=== PATIENT | female | born 1985 | race Caucasian/White ===

== ENCOUNTER 2018-09-30 11:13 | Outpatient (CLI) | payer OTHER, SELFPAY ==
[2018-09-30 11:47] LABS: Abs Immature Grans 0.02 k/cumm (0.0-0.09); Absolute Basophil Count 0.02 k/cumm (0.0-0.2); Absolute Lymphocyte Count 2.33 k/cumm (1.2-3.4); Absolute Monocyte Count 0.82 k/cumm (0.11-0.7); Absolute Neutrophil Count 4.93 k/cumm (1.2-6.7); Basophils % 0.2; HCT 37.2 % (36.0-46.0); HGB 12.4 g/dL (12.0-15.5); Immature Grans % 0.2; Lymphocytes % 28.7; Mean Corp. HGB Concentration 33.3 g/dL (32.0-36.0); Mean Corpuscular Hemoglobin 26.6 pg (27.0-33.0); Mean Corpuscular Volume 79.8 fL (80-95); Mean Platelet Volume 9.7 fL (8.0-11.0); Monocytes % 10.1; Neutrophils % 60.8; Platelet Count 293 x1000/uL (130-400); RBC 4.66 m/cumm (4.00-5.20); RBC Distribution Width 13.3 % (11.7-14.6); White Blood Cell Count 8.12 k/cumm (4.4-10.8)
[2018-10-01 10:24] LABS: Hepatitis C Ab w Rflx HCV PCR Negative (NEGAT)
[2018-10-01 10:27] LABS: Hepatitis B Surface Ag Negative (NEGAT)
[2018-10-01 10:43] LABS: HIV-1/2 Ag & Ab Screen Negative (NEGAT)
[2018-10-01 10:57] LABS: Rubella IgG Ab (UVM) Positive; Syphilis Serology (RPR) Negative (Negative); Varicella IgG Antibody Positive
== END 2018-09-30 11:33 ==
PROVIDERS: Visit Provider Advanced Practice Midwife
DX: Z34.91 Encounter for supervision of normal pregnancy, unspecified, first trimester (principal); Z11.59 Encounter for screening for other viral diseases; Z11.4 Encounter for screening for human immunodeficiency virus [HIV]; Z01.84 Encounter for antibody response examination
CPT/HCPCS: 36415; 80055; 86787; 86803; 86850; 86900; 86901; 87340; 87389; 86592; 86762

== ENCOUNTER 2018-09-30 13:02 | Outpatient (REF) | payer OTHER, SELFPAY ==
[2018-09-30 14:49] LABS: *AMPHETAMINES SCREEN URINE Negative (Negative); *BARBITURATES SCREEN URINE Negative (Negative); *BENZODIAZEPINES SCREEN URINE Negative (Negative); Cannabinoids THC Negative (Negative); Cocaine Screen,Urine Negative (Negative); METHADONE URINE SCREEN Negative (Negative); OPIATES URINE SCREEN Negative (Negative); Tricyclic Antidepressants Negative (Negative)
[2018-10-01 13:54] LABS: Chlamydia Result Negative; GC Result Negative; Specimen Description CERVIX
[2018-10-05 10:00] LABS: Buprenorphine Negative; Norbuprenorphine Negative
== END 2018-09-30 13:22 ==
LOC: LBN 13:02
PROVIDERS: Visit Provider Advanced Practice Midwife
DX: Z34.90 Encounter for supervision of normal pregnancy, unspecified, unspecified trimester (principal); N76.3 Subacute and chronic vulvitis
CPT/HCPCS: 80307; 87491; 87591; 87086; 87480; 87510; 87660

== ENCOUNTER 2018-10-30 11:21 | Outpatient (CLI) | payer OTHER, SELFPAY ==
[2018-10-30 11:50] LABS: Kit/Specimen SENT
[2018-11-02 17:17] LABS: AFP 45.6 ng/mL; Calculated age at EDD 34 years; Cigarette smoking status non-smoker; GA used in risk estimate Dates estimate; IVF Pregnancy No; Initial or repeat testing Initial testing; Insulin dependent diabetes No; Maternal Weight 147 lbs; Number of Fetuses 1; Physician Phone Number 802-748-7300; Prev Pregnancy w/NTD No; RECOMMENDED FOLLOW UP None.; Results Summary Normal risk
== END 2018-10-30 11:41 ==
PROVIDERS: Visit Provider Advanced Practice Midwife
DX: Z34.91 Encounter for supervision of normal pregnancy, unspecified, first trimester (principal); Z36.89 Encounter for other specified antenatal screening
CPT/HCPCS: 82105

== ENCOUNTER 2018-11-19 00:35 | Outpatient (CLI) | payer OTHER, SELFPAY ==
--- NOTE | 2018-11-19 15:18 | DI.US_ITS ---
SYMPTOMS/DIAGNOSIS: ANATOMICAL SURVEY, Z34.90 OB ULTRASOUND: Predicted Gestational Age: Indication/History: 19+-6 Wks Range: 18+6 to 20+6 Prior US done on: Determined by: First US LMP History EDC by prior US: 04/09/19 For multiple gestations: Baby PLACENTA: Grade: 0-I Location: Anterior Posterior PRESENTATION: RT LT LOW LYING PREVIA Cephalic Trans (Head RT LT ) Varied X Breech BIOMETRY: Anatomy Identified: BPD: 46 mm 20 wks 4 chamber Heart X Heart Rate 144 BPM HC: 179 mm 20+3 wks LVOT X Post Fossa X AC: 146 mm 19+6 wks RVOT X Ventricles X FL: 33 mm 20+2 wks Stomach X Nose X Bladder X Lips X Cisterna Magna: 3.1 mm CI: 80 Kidneys X Palate X Cerebellum: 2.1 cm 3 vessel cord X Spine EFW: 332 grms 60% Cord Insertion X NS= not seen Composite Age (US) 20+1 wks Many abnormalities cannot be diagnosed. A normal exam does not exclude congenital abnormality. EDC by US: 04/07/19 Amniotic Fluid Index: Normal COMMENTS: 0 POUNDS 12 OUNCES RUQ: LUQ: RLQ: LLQ: Total: cm Biophysical Profile: Score 0/2 SHAHRAM (>2cm) Respirations (>30 sec) Body flexion/extension Extremity flexion/extension TOTAL SCORE The study demonstrates the fetus in varying positions. The measurements suggest a gestational age of 20 weeks and 1 day. The amniotic fluid index is normal. No anomaly was observed. The heart rate is 144 beats per minute. The placenta is posterior and is grade 0-1. Please see the obstetrical ultrasound report form for the complete results of this examination.
== END 2018-11-19 00:55 ==
PROVIDERS: Visit Provider Advanced Practice Midwife
DX: Z34.90 Encounter for supervision of normal pregnancy, unspecified, unspecified trimester (principal)
CPT/HCPCS: 76805

== ENCOUNTER 2019-01-12 09:13 | Outpatient (CLI) | payer OTHER, SELFPAY ==
[2019-01-12 09:28] LABS: HCT 32.4 % (36.0-46.0); HGB 10.8 g/dL (12.0-15.5); Mean Corp. HGB Concentration 33.3 g/dL (32.0-36.0); Mean Corpuscular Hemoglobin 26.9 pg (27.0-33.0); Mean Corpuscular Volume 80.6 fL (80-95); Mean Platelet Volume 9.1 fL (8.0-11.0); Platelet Count 278 x1000/uL (130-400); RBC 4.02 m/cumm (4.00-5.20); RBC Distribution Width 13.1 % (11.7-14.6); White Blood Cell Count 8.29 k/cumm (4.4-10.8)
[2019-01-12 09:45] LABS: Glucose,1 Hr (Glucola) 119 mg/dL (80-140)
== END 2019-01-12 09:33 ==
PROVIDERS: Visit Provider Advanced Practice Midwife
DX: Z34.93 Encounter for supervision of normal pregnancy, unspecified, third trimester (principal)
CPT/HCPCS: 36415; 82950; 85027

== ENCOUNTER 2019-03-10 15:40 | Outpatient (REF) | payer OTHER, SELFPAY ==
[2019-03-10 16:21] LABS: *AMPHETAMINES SCREEN URINE Negative (Negative); *BARBITURATES SCREEN URINE Negative (Negative); *BENZODIAZEPINES SCREEN URINE Negative (Negative); Cannabinoids THC Negative (Negative); Cocaine Screen,Urine Negative (Negative); METHADONE URINE SCREEN Negative (Negative); OPIATES URINE SCREEN Negative (Negative)
[2019-03-10 16:32] LABS: Tricyclic Antidepressants Negative (Negative)
[2019-03-15 14:23] LABS: Buprenorphine Negative; Norbuprenorphine Negative
== END 2019-03-10 16:00 ==
LOC: LBN 15:40
PROVIDERS: Visit Provider Advanced Practice Midwife
DX: Z34.93 Encounter for supervision of normal pregnancy, unspecified, third trimester (principal); Z36.85 Encounter for antenatal screening for Streptococcus B
CPT/HCPCS: 80307; 87081

== ENCOUNTER 2019-04-12 09:47 | Inpatient (IN) | payer OTHER, SELFPAY ==
[2019-04-12 12:23] LABS: HCT 35.6 % (36.0-46.0); HGB 11.7 g/dL (12.0-15.5); Mean Corp. HGB Concentration 32.9 g/dL (32.0-36.0); Mean Corpuscular Hemoglobin 25.9 pg (27.0-33.0); Mean Corpuscular Volume 78.9 fL (80-95); Mean Platelet Volume 10.5 fL (8.0-11.0); Platelet Count 291 x1000/uL (130-400); RBC 4.51 m/cumm (4.00-5.20); RBC Distribution Width 14.4 % (11.7-14.6); White Blood Cell Count 13.08 k/cumm (4.4-10.8)
[2019-04-12] MEDS: fentaNYL 100 MCG/2 ML VIAL EP (13:20)
[2019-04-12] MEDS: Bupivacaine 0.25% Pres-Free 30 ML VIAL (13:22)
[2019-04-12] MEDS: FentaNYL/ROPIvacaine 2 mcg/ml and 0.1% 200 ML CADD Cassette EP (14:00)
--- NOTE | 2019-04-12 18:30 | PLAC_PTH ---
PATIENT: Mariluz Dimas LOC: OBS U#:[id number] AGE/SX: 33/F ROOM: OBS.304 RE04/12/[address]: Bridgett Carlin CNM : 1985 BED: A DIS: 04/14/2019 SPEC #: [id number] RECD: 04/12/19 22:02 STATUS: KAREEN REHenok #: [id number] PEDRO: 04/12/19 18:[address]: Bridgett Carlin DEPT: Surgical Specimen RECD BY: Isidro Alvarado ENTERED: 04/13/19 12:07 SP TYPE: PLAC OTHR DR: Sukhi Damian, RN Tissues: 1 - PLACENTA (3RD TRIMESTER) Procedures: SPECIAL STAIN 2 GROSS AND MICRO LEVEL 5 Comments: [id number]
[2019-04-12] MEDS: lamoTRIgine 100 MG TAB 150 MG PO (21:03)
[2019-04-12] MEDS: Acetaminophen 325 MG TAB 650 MG PO (23:46)
[2019-04-12] MEDS: Ibuprofen 600 MG TAB PO (23:46)
[2019-04-13 06:54] LABS: HGB 9.3 g/dL (12.0-15.5); Mean Corp. HGB Concentration 32.1 g/dL (32.0-36.0); Mean Corpuscular Hemoglobin 25.7 pg (27.0-33.0); Mean Corpuscular Volume 80.1 fL (80-95); Mean Platelet Volume 9.6 fL (8.0-11.0); Platelet Count 241 x1000/uL (130-400); RBC 3.62 m/cumm (4.00-5.20); RBC Distribution Width 14.3 % (11.7-14.6)
[2019-04-13] MEDS: lamoTRIgine 100 MG TAB 150 MG PO ×2 (12:38→23:13)
[2019-04-13] MEDS: Acetaminophen 325 MG TAB 650 MG PO ×2 (12:39→23:13)
[2019-04-13] MEDS: Ibuprofen 600 MG TAB PO ×2 (12:40→23:12)
[2019-04-14] MEDS: Ibuprofen 600 MG TAB PO (07:56)
[2019-04-14] MEDS: Acetaminophen 325 MG TAB 650 MG PO (07:56)
[2019-04-14] MEDS: lamoTRIgine 100 MG TAB 150 MG PO (09:59)
== END 2019-04-14 13:30 | disposition home or self-care (01) | DRG 806 ==
PROVIDERS: Admitting Provider Advanced Practice Midwife; Visit Provider Advanced Practice Midwife
DX: O42.02 Full-term premature rupture of membranes, onset of labor within 24 hours of rupture (principal); O99.354 Diseases of the nervous system complicating childbirth; Z37.0 Single live birth; O48.0 Post-term pregnancy; Z3A.40 40 weeks gestation of pregnancy; O70.0 First degree perineal laceration during delivery; O77.0 Labor and delivery complicated by meconium in amniotic fluid; O69.89X0 Labor and delivery complicated by other cord complications, not applicable or unspecified; O99.824 Streptococcus B carrier state complicating childbirth; O99.344 Other mental disorders complicating childbirth; O92.29 Other disorders of breast associated with pregnancy and the puerperium; F41.9 Anxiety disorder, unspecified; G40.909 Epilepsy, unspecified, not intractable, without status epilepticus; Z88.0 Allergy status to penicillin
CPT/HCPCS: 36415; 85027; 86850; 86900; 86901; 88307; 88313; J3010; J3490

== ENCOUNTER 2019-05-26 14:07 | Outpatient (REF) | payer OTHER, SELFPAY ==
[2019-05-28 14:48] LABS: Chlamydia Result Negative (Negative); GC Result Negative (Negative)
== END 2019-05-26 14:27 ==
LOC: LBN 14:07
PROVIDERS: Visit Provider Advanced Practice Midwife
DX: Z11.3 Encounter for screening for infections with a predominantly sexual mode of transmission (principal)
CPT/HCPCS: 87491; 87591

== ENCOUNTER 2022-05-31 15:10 | Outpatient (REF) | payer MEDICAID, SELFPAY ==
--- NOTE | 2022-05-31 13:00 | PAPFT_PTH ---
PATIENT: Mariluz Dimas LOC: PHILL U#:[id number] AGE/SX: 36/F ROOM: RE05/31/[address]: Bridgett Carlin CNM : 1985 BED: DIS: 05/31/2022 SPEC #: [id number] RECD: 05/31/22 18:23 STATUS: KAREEN REQ #: [id number] PEDRO: 05/31/22 13:[address]: Bridgett Carlin [facility] Cytology RECD BY: Naty Savage Tissues: 1 - CX/ENDOCX FOR PAP SMEARS Procedures: PAP THIN PREP/UVM Screening HPV DNA PROBE Comments: [id number] (HPV 16 & 18/45)
== END 2022-05-31 15:11 | disposition home or self-care (01) ==
LOC: LBN 15:10
PROVIDERS: Visit Provider Advanced Practice Midwife
DX: Z12.4 Encounter for screening for malignant neoplasm of cervix (principal); Z11.51 Encounter for screening for human papillomavirus (HPV); R87.612 Low grade squamous intraepithelial lesion on cytologic smear of cervix (LGSIL); R87.810 Cervical high risk human papillomavirus (HPV) DNA test positive
CPT/HCPCS: 88142; 87624

== ENCOUNTER 2022-07-12 10:45 | Outpatient (REF) | payer MEDICAID, SELFPAY ==
--- NOTE | 2022-07-12 09:50 | ENDO_PTH ---
PATIENT: Mariluz Dimas LOC: PHILL U#:[id number] AGE/SX: 36/F ROOM: RE07/12/[address]: Mary Santos DO : 1985 BED: DIS: 07/12/2022 SPEC #: [id number] RECD: 07/12/22 12:12 STATUS: KAREEN REQ #: [id number] PEDRO: 07/12/22 09:[address]: Mary Santos DEPT: Surgical Specimen RECD BY: Naty Savage Tissues: 1 - ENDOCERVICAL BX/CURRETTE 2 - CERVICAL BIOPSY Procedures: GROSS AND MICRO LEVEL 4 IMMUNOPEROXIDASE STAIN P16 IPEX Comments: [id number]
== END 2022-07-12 10:46 | disposition home or self-care (01) ==
LOC: LBN 10:45
PROVIDERS: Visit Provider Obstetrics & Gynecology
DX: N87.1 Moderate cervical dysplasia (principal); R87.612 Low grade squamous intraepithelial lesion on cytologic smear of cervix (LGSIL); R87.810 Cervical high risk human papillomavirus (HPV) DNA test positive
CPT/HCPCS: 88305; 88342; 88361

== ENCOUNTER 2022-08-29 14:55 | Outpatient (REF) | payer MEDICAID, SELFPAY ==
--- NOTE | 2022-08-29 14:15 | CER_PTH ---
PATIENT: Mariluz Dimas LOC: Josefina U#:[id number] AGE/SX: 37/F ROOM: RE08/29/[address]: Mary Santos DO : 1985 BED: DIS: 08/29/2022 SPEC #: [id number] RECD: 08/29/22 16:10 STATUS: KAREEN RE #: [id number] PEDRO: 08/29/22 14:[address]: Mary Santos DEPT: Surgical Specimen RECD BY: Ludy Fritz Tissues: 1 - CERVICAL BIOPSY 2 - CERVICAL BIOPSY Procedures: IMMUNOPEROXIDASE STAIN GROSS AND MICRO LEVEL 5 Comments: [id number]
== END 2022-08-29 14:56 | disposition home or self-care (01) ==
LOC: LBN 14:55
PROVIDERS: Visit Provider Obstetrics & Gynecology
DX: N87.1 Moderate cervical dysplasia (principal); N88.8 Other specified noninflammatory disorders of cervix uteri
CPT/HCPCS: 88305; 88307; 88361

== ENCOUNTER 2023-03-03 11:50 | Outpatient (REF) | payer SELFPAY ==
--- NOTE | 2023-03-03 10:20 | PAPFT_PTH ---
PATIENT: Mariluz Dimas LOC: PHILL U#:[id number] AGE/SX: 37/F ROOM: RE03/03/[address]: Mary Santos DO : 1985 BED: DIS: 03/03/2023 SPEC #: [id number] RECD: 03/03/23 13:12 STATUS: KAREEN REQ #: [id number] PEDRO: 03/03/23 10:[address]: Mary Santos DEPT: [facility] Cytology RECD BY: Naty Savage Tissues: 1 - CX/ENDOCX FOR PAP SMEARS Procedures: PAP THIN PREP/UVM Screening HPV DNA PROBE Comments: [id number]
== END 2023-03-03 11:51 | disposition home or self-care (01) ==
LOC: LBN 11:50
PROVIDERS: PCP Obstetrics & Gynecology; Visit Provider Obstetrics & Gynecology
DX: Z12.4 Encounter for screening for malignant neoplasm of cervix (principal); Z11.51 Encounter for screening for human papillomavirus (HPV)
CPT/HCPCS: 88142; 87624

== ENCOUNTER 2024-05-18 14:18 | Outpatient (REF) | payer MEDICAID, SELFPAY | END 2024-05-18 14:19 | disposition home or self-care (01) | LOC: LBN 14:18 | PROVIDERS: PCP Obstetrics & Gynecology; Visit Provider Obstetrics & Gynecology | DX: N89.8 Other specified noninflammatory disorders of vagina (principal) | CPT/HCPCS: 87480; 87510; 87660 ==

== ENCOUNTER 2024-05-27 00:22 | Outpatient (CLI) | payer MEDICAID, SELFPAY ==
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
--- OUTSIDE RECORDS SUMMARY | 2024-05-27 00:36 | XMS_ITS | Encounter Summary ---
Author Organization Formerly [facility] Address [facility] [place] [address] Care Team Providers Care Java Tech Name Role Phone Erinn Walters APRN Primary Care Provider [phone] Reason for Referral * Consultation (Routine) - Specialty Diagnoses / Procedures Referred By Melinda gastelum Referred To Contact Dermatology Diagnoses Disorder of skin or subcutaneous tissue Lentigo Erinn Walters APRN [address] [place] [id number] [facility] [address] [place] [id number] Referral ID Status Reason Start Date Expiration Date V isits Requested Visits Authorized [id number] Consult, Test & Treat 04/09/2017 04/09/2018 1 1 Reason for Visit * Reason Comments Annual Exam Encounter Details Date Type Department Care Team ([facility] st Contact Info) Description 04/09/2017 10:50 AM EST Office Visit Primary Care at [address] [phone] Erinn Walters APRN [address] [place] [phone] Cervical cancer screening; Convulsions, unspecified convulsion type; Preventative health care; Disorder of skin or subcutaneous tissue; Lentigo Social History Tobacco Use Types Packs/Day Years Used Date Smoking Tobacco: Former Cigarettes Q uit: 04/21/2003 Smokeless Tobacco: Never Sex and Gender Information Value Date Recorded Sex Assigned at Not on file Gender Identity Not on file Sexual Orientation Not on file documented as of this encounter Last Filed Vital Signs Vital Sign Reading Time Taken Comments Blood Pressure 110/68 04/09/2017 10:53 AM EST Pulse 71 04/09/2017 10:53 AM EST Temperature 36.4 ??C (97.6 ??F) 04/09/2017 10:[address] Respiratory Rate - - Oxygen Saturation 100% 04/09/2017 10:53 AM EST Inhaled Oxygen Concentration - - Weight 63 kg (138 lb 12.8 oz) 04/09/2017 10:53 A M EST Height 167.6 cm (5' 6) 04/09/2017 10:53 AM EST Body Mass Index 22.4 04/09/2017 10:53 AM EST documented in this encounter Patient Instructions * Patient Instructions* Erinn Walters APRN - 04/09/2017 10:50 AM EST Good to see you! I will let you know the results of your labs thru my-. Happy Holidays and best wishes for your move to [place]!! documented in this encounter Progress Notes * Erinn Walters APRN - 04/09/2017 10:50 AM EST Subjective: AV Patient ID: Mariluz Dimas is a 31 y.o. female. HPI Stressful Summer. Several deaths of friends; OD, sudden heart issue and family friend. It has been good lately. Thinking of moving to [place] with her [employer]. Would be [facility] in the Spring. Cost of living a bit higher. Only 2 1/2 hours away still close to friends etc. Currently lives in her own apt. Not dating anyone. 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 Due for labs. No seizures in over a decade. Cont on Lamictal. Review of Systems Constitutional: Negative. HENT: Negative. Eyes: Negative. Respiratory: Negative. Cardiovascular: Negative. Gastrointestinal: Negative. Endocrine: Negative. Genitourinary: Negative. Musculoskeletal: Negative. Skin: Multiple atypical moles Needs mole check Neurological: Negative. Psychiatric/Behavioral: Negative. Objective: Physical Exam Constitutional: She appears well-developed and well-nourished. No distress. HENT: Head: Normocephalic. Right Ear: External ear normal. Left Ear: External ear normal. Nose: Nose normal. Mouth/Throat: Oropharynx is clear and moist. No oropharyngeal exudate. Eyes: Conjunctivae and EOM are normal. Pupils are equal, round, and reactive to light. No scleral icterus. Neck: Neck supple. Cardiovascular: Normal rate and regular rhythm. Pulmonary/Chest: Breath sounds normal. Breast exam Abdominal: Soft. Bowel sounds are normal. Genitourinary: Vagina normal and uterus normal. Musculoskeletal: Normal range of motion. She exhibits no edema. Neurological: She has normal reflexes. Skin: Skin is warm and dry. Psychiatric: She has a normal mood and affect. Assessment and Plan: .Preventative health care Nl exam PAP and labs Ref for derm ck Convulsions Sees neuro No seizures in over 10 yrs Disorder of skin or subcutaneous tissue Refer for mole ck documented in this encounter Miscellaneous Notes * Assessment & Plan Note - Erinn Walters APRN - 04/09/2017 1:42 PM EST Associated Problem(s): Disorder of skin or subcutaneous tissue Refer for mole ck * Assessment & Plan Note - Erinn Walters APRN - 04/09/2017 1:42 PM EST Associated Problem(s): Convulsions Sees neuro No seizures in over 10 yrs * Assessment & Plan Note - Erinn Walters APRN - 04/09/2017 1:42 PM EST Associated Problem(s): Preventative health care Nl exam PAP and labs Ref for derm ck documented in this encounter Plan of Treatment Scheduled Referrals Name Type Priority Associated Diagnoses Orde r Schedule Referral to Dermatology Outpatient Referral Routine Disorder of skin or subcutaneous tissue Lentigo Ordered: 04/09/2017 documented as of this encounter Procedures Procedure Name Priority Date/Time Associated Diagnosis Comments HPV Routine 04/09/2017 11:43 AM EST POUNCER CYTOLOGY INTERPRETATION Routine 04/09/2017 11:43 AM EST POUNCER CYTOLOGY FINAL REPORT Routine 04/09/2017 11:43 AM EST CYTOPATHOLOGY GYNECOLOGICAL Routine 04/09/2017 11:43 AM EST Cervical cancer screening documented in this encounter Results * Lipid Panel (04/09/2017 12:00 PM EST) Cholesterol, Total 167 <=239 mg/dL [facility] Triglyceride 132 <=199 mg/dL [facility] HDL Cholesterol 72 >=40 mg/dL [facility] LDL Cholesterol 69 <=190 mg/dL [facility] Cholesterol/HDL Ratio 2.3 ratio [facility] Lipid Interpretation See Note [facility] Comment: Lipid management should be guided by a patient? s ASCVD risk, goals and preferences. ACC/AHA Guidelines recommend high intensity statin if clinical ASCVD or LDL greater than or equal to 190 mg/dL. http://SeatNinjaurNovusEdge.com/XNI-WST-Jvdkmcyhz Adults aged 40-75 with LDL 70-189 mg/dL should have their 10 year ASCVD risk estimated with the ACC/AHA ASCVD risk printing estimator http://tools.acc.org/WIOSJ-Suqk-Wmcfhwkdn/ Statin should be discussed if risk greater than or equal to 7.5% in non-diabetics. With diabetes, moderate intensity statin is recommended if risk less than 7.5%, high intensity if risk greater than or equal to 7.5%. Annual lipid monitoring on statins is not necessary. Evaluate secondary causes of Triglycerides greater than 500 mg/dL or LDL greater than 190 mg/dL: See table 6 of ACC/AHA Guideline. Lifestyle modification is a critical component of ASCVD risk reduction. Blood specimen (specimen) 04/09/2017 12:00 PM EST 04/09/2017 7:35 PM EST Narrative Resulting Agency Comment Spec In Lab Erinn Voss Walters REGINA CHEMISTRY ORDERABLE S [facility] [place] [address] * (ABNORMAL) Comprehensive metabolic panel (non-fasting) (04/09/2017 12:00 PM EST) Glucose 81 65 - 199 mg/dL [facility] Comment:Diabetes: >=200 mg/d L plus symptoms Blood Urea Nitrogen 9 8 - 18 mg/dL [facility] Creatinine 0.90 0.70 - 1.20 mg/dL [facility] Sodium 143 135 - 145 mmol/L [facility] Potassium 4.1 3.5 - 5.0 mmol/L [facility] Comment: Please note: ??Patients with WBC >100,000 may have falsely elevated Potassium levels. ??For accurate Potassium quantification in these patients send serum separator tube (gold top) for subsequent determinations. ??Contact the Clinical Chemistry Laboratory if there are any questions. Chloride 103 98 - 107 mmol/L [facility] Carbon Dioxide 30 22 - 31 mmol/L [facility] Anion Gap 10 5 - 15 mmol/L [facility] Calcium 9.5 8.5 - 10.5 mg/dL [facility] Protein, Total 8.1(H) 6.1 - 8.0 gm/dL [facility] Albumin 4.7 3.2 - 5.2 gm/dL [facility] Aspartate Aminotransferase 15 0 - 30 unit/L [facility] Alanine Aminotransferase 10 0 - 30 unit/L [facility] Alkaline Phosphatase 50 40 - 104 unit/L [facility] Bilirubin, Total 0.2 0.2 - 1.3 mg/dL [facility] Est Glomerular Filtration Rate >60 >=60 [facility] Comment: The reported eGFR should be multiplied by 1.2 for patients. The MDRD is not an appropriate measure of renal function for patients with body mass extremes or in patients with acute kidney failure. http://ObjectLabs/DHnkdep http://ObjectLabs/DHnkf Blood specimen (specimen) 04/09/2017 12:00 PM EST 04/09/2017 7:35 PM EST Narrative Resulting Agency Comment Spec In Lab Erinn Walters APRN CHEMISTRY ORDERABLE S [facility] [place] [address] * Post Closing Specialist Cytology Final Report (04/09/2017 11:43 AM EST) Post Closing Specialist Cytology Final Report [id number] ? Location: [place] The signing pathologist has (i) examined the relevant preparation(s) for the specimen(s) and (ii) rendered or confirmed the diagnosis(es). . ? Post Closing Specialist Final DIAGNOSIS Epithelial Cell Abnormality Low Grade Squamous Intraepithelial Lesion (LSIL). (encompassing: Human Papilloma virus, mild dysplasia and cervical intraepithelial neoplasia (CIN1).) For consensus guidelines for the management of cervical cancer screening test results, please see: ?? http://www.asccp.o rg . Electronically signed by: ??Lena Ruff MD Verified: ??04/30/2017 ?Pathologist Performed at: ??-[facility] Dept. [facility], [place], [place] DISCUSSION Shift in oneil suggestive of bacterial vaginosis. HPV RESULTS HPV16 (Result) ?Negative HPV18 (Result) ?Negative HPVOHR (Result) ? Positive * HPV (Interpretation) ?See Below HPV (Interpretation) [...] Clinical Genomics and [employer] Technology (CGAT) at [facility]. ? - Fernie Morales, PhD, [facility], Director-CGAT STATEMENT OF ADEQUACY Specimen submitted is satisfactory. Endocervical component present. CLINICAL INFORMATION HPV Option: ?Concurrent HPV and Pap Preparation: ? Liquid based Pap Specimen Source: ? Cervical/Endocervi john/Vaginal LMP: ? 03/21/17 Hormones?: ? No Hysterectomy?: ? No ?: ? No ?: ? No I.U.D.?: ? No Pelvic Radiation: ?No Prior POUNCER Therapy?: ?No Hist Abnl Pap/Biopsy?: ?? Yes, history of previous abnormal Pap Hist of HPV Vaccine?: ?No . CLINICAL INFORMATION Hist of Smoking?: ?Yes Hist of LEONARD exposure?: ?? No ICD Diagnosis: ? Z12.4 Encounter for screening for malignant neoplasm of cervix Clinical Data, Significant Therapy and Clinical Impression ?? : ?_ This Pap Test has been evaluated with the assistance of the [employer] Semiconductor Equipment AssociatesPrep Pap Test Imaging System. Note: The Pap test is a screening test for cervical cancer with an inherent false-negative rate dependent upon several variables. For further information please contact the [facility]. Reference: Gen INMAN. Psychology Lecturer of Pap Smear Results. In: Kat BS, Jh HH, ed. The Pap Smear. [facility]: Allan, 2002: 71-77. [facility] 04/09/2017 11:4 3 AM EST Erinn Walters APRN PATHOLOGY/CYTOLOGY ORDERABLES Performing Organization Address City/[facility] [place] [address] * (ABNORMAL) POUNCER Cytology Interpretation (04/09/2017 11:43 AM EST) Post Closing Specialist Cytology Interpretation LSIL(A) [facility] Comment:Post Closing Specialist Cytology Final R eport Post Closing Specialist Cytology Comment Present [facility] Endocervical Component Present [facility] AP Specimen 04/09/2017 11:4 3 AM EST 04/30/2017 9:42 AM EST Erinn Walters APRN PATHOLOGY/CYTOLOGY ORDERABLES Performing Organization Address City/[facility] Co de Phone Number [facility] [place] [address] * (ABNORMAL) HPV (04/09/2017 11:43 AM EST) HPV16 NEGATIVE NEGATIVE [facility] HPV 18 NEGATIVE NEGATIVE [facility] HPV Other HR POSITIVE(A) NEGATIVE [place] HPV Interpretation See Comment [facility] Comment: POSITIVE for high-risk HPV* (High [...] Cytology Liquid Based Prep Cervical swab (specimen) 04/09/2017 11:43 AM EST 04/09/2017 8:40 PM EST Narrative Resulting Agency Comment Spec In Lab Erinn Walters APRN PATHOLOGY/CYTOLOGY ORDERABLES Performing Organization Address City/[facility] Co de Phone Number [facility] [place] [address] * Cytopathology Gynecological (04/09/2017 11:43 AM EST) AP Specimen 04/09/2017 11:4 3 AM EST 04/09/2017 7:49 PM EST Narrative [facility] - 04/09/2017 7:49 PM EST Specimen requisition ordered. ??Separate Pathology report to follow Resulting Agency Comment Spec In Lab Erinn Walters APRN PATHOLOGY/CYTOLOGY ORDERABLES Performing Organization Address [facility] Co de Phone Number [facility] [place] [address] documented in this encounter Visit Diagnoses Diagnosis Cervical cancer screening Screening for malignant neoplasm of the cervix Convulsions, unspecified convulsion type Preventative health care Routine general medical examination at a health care facility Disorder of skin or subcutaneous tissue Unspecified disorder of skin and subcutaneous tissue Lentigo Other dyschromia documented in this encounter Care Teams Java Tech Relationship Specialty Start Date End Date Erinn Walters, ELECTRONICS TECH [address] [place] [address] PCP - General 04/03/11 04/29/24 documented as of this encounter
--- OUTSIDE RECORDS SUMMARY | 2024-05-27 00:36 | XMS_ITS | Encounter Summary ---
[place] [address] Care Team Providers Care Industrial Trainer Name Role Phone Erinn Walters APRN Primary Care Provider [phone]- [phone] Reason for Visit * Reason Onset Date Comments Other 07/23/2018 mammogram order requested Encounter Details Date Type Department Care Team ([facility] st Contact Info) Description 07/23/2018 Telephone Primary Care at [address] [address] Kim Magana RN Other (mammogram order requested) Social History Tobacco Use Types Packs/Day Years Used Date Smoking Tobacco: Former Cigarettes Q uit: 04/21/2003 Smokeless Tobacco: Never Sex and Gender Information Value Date Recorded Sex Assigned at Not on file Gender Identity Not on file Sexual Orientation Not on file documented as of this encounter Miscellaneous Notes * Telephone Encounter - Kim Magana RN - 09/12/2018 11:27 AM EDT Erinn had placed the order * Telephone Encounter - Kim Magana RN - 07/23/2018 9:22 AM EDT Jul 23, 2018 9:15 AM Souleymane Burch wrote: Message: Liudmila [facility] in [place] called - states they received a fax yesterday for this Patient to have a bilateral breast ultra sound. States they are going to need another order for bilateral diagnostic mammogram to be faxed over to go with this request. States this would be for patients breast tenderness. Please call with any questions. Started the mammogram order but there are questions that need to be answered before it can be signed. Message forwarded to Erinn parrish to complete the order. documented in this encounter Plan of Treatment Not on file documented as of this encounter Visit Diagnoses Diagnosis Mastodynia documented in this encounter Care Teams Industrial Trainer Relationship Specialty Start Date End Date Erinn Walters, WEIGH TANK OPERATOR [address] [place] [address] PCP - General 04/03/11 04/29/24 documented as of this encounter
--- OUTSIDE RECORDS SUMMARY | 2024-05-27 00:36 | XMS_ITS | Encounter Summary ---
Author Organization [facility] [place] [address] Care Team Providers Care Dandy Tender Name Role Phone Sheridan Arias RETORT LOAD EXPEDITER Primary Care Provider [phone] Reason for Visit * Reason Comments Other Encounter Details Date Type Department Care Team ([facility] Contact Info) Description 03/24/2015 Telephone Primary Care at [address] [address] Sheridan Arias, RETORT LOAD EXPEDITER [address] [place] [address] Social History Tobacco Use Types Packs/Day Years Used Date Smoking Tobacco: Never Sex and Gender Information Value Date Recorded Sex Assigned at Not on file Gender Identity Not on file Sexual Orientation Not on file documented as of this encounter Miscellaneous Notes * Telephone Encounter - Heaven Vides RN - 03/24/2015 10:02 AM EST Called pt back Pt states she had some itching in vagina and burning upon urination She states the area is also red No vaginal discharge noted Pt has had sxs for 1.5 weeks Pt states she thought she had a yeast infection Pt used Monistat One day tx with little relief Pt also states Did have relations with a new partner two weeks ago Pt states she did not use any protection TRIAGE CALL Subjective:as above [place] questions/Assessment:redness and itching in vaginal area Plan: appt booked Name of Guideline/Protocol Used: Vaginal Disharge/pain/itching Patient/Responsible green party voices an understanding of advice?Yes Patient/Responsible green party intends to comply with action/disposition: Yes Reference used: Suazo 3rd E * Telephone Encounter - Xochitl Roldan - 03/24/2015 9:18 AM EST Patient called back [phone] * Telephone Encounter - Heaven Vides, RN - 03/24/2015 9:07 AM EST Called pt back Message left * Telephone Encounter - Heaven Vides, RN - 03/24/2015 9:07 AM EST ----- Message from Asif Saez sent at 03/24/2015 8:26 AM EST ----- Triage Call PCP: SHERIDAN ARIAS APRN Best number to be reached at: [phone] Times available: anytime Message: Patient calling stating has had what she thought was a yeast infection for a couple weeks,maybe three. States used over the counter medication for a yeast infectuion and it hasn't helped. documented in this encounter Plan of Treatment Not on file documented as of this encounter Visit Diagnoses Not on filedocumented in this encounter Care Teams Dandy Tender Relationship Specialty Start Date End Date Sheridan Arias APRN [address] [place] [address] PCP - General 04/03/11 04/29/24 documented as of this encounter
--- OUTSIDE RECORDS SUMMARY | 2024-05-27 00:36 | XMS_ITS | Encounter Summary ---
[place] [address] Care Team Providers Care Security Officers And Guards Name Role Phone Erinn Walters AUDIO VISUAL ENGINEER Primary Care Provider [phone] Reason for Visit * Reason Comments Medication Refill Encounter Details Date Type Department Care Team ([facility] st Contact Info) Description 11/27/2018 Refill Primary Care at [address] [address] Erinn Walters, AUDIO VISUAL ENGINEER [address] [place] [address] Social History Tobacco Use Types Packs/Day Years Used Date Smoking Tobacco: Former Cigarettes Q uit: 04/21/2003 Smokeless Tobacco: Never Sex and Gender Information Value Date Recorded Sex Assigned at Not on file Gender Identity Not on file Sexual Orientation Not on file documented as of this encounter Miscellaneous Notes * Telephone Encounter - Meri Duval CMA - 11/27/2018 11:37 AM EDT Last Prescription Fill Date: 06/10/18 Number Dispensed and Refills: 30 w/3 Last Related Office Visit: 07/01/18 Next appointment: Visit date not found No flowsheet data found. Lab Results Component Value Date CHLPL 167 04/09/2017 TRIG 132 04/09/2017 HDL 72 04/09/2017 LDLCHOL 69 04/09/2017 ALT 10 04/09/2017 AST 15 04/09/2017 NA 143 04/09/2017 K 4.1 04/09/2017 CL 103 04/09/2017 CREATININE 0.90 04/09/2017 documented in this encounter Plan of Treatment Not on file documented as of this encounter Visit Diagnoses Not on filedocumented in this encounter Care Teams Security Officers And Guards Relationship Specialty Start Date End Date Erinn Walters, AUDIO VISUAL ENGINEER [address] [place] [address] PCP - General 04/03/11 04/29/24 documented as of this encounter
--- OUTSIDE RECORDS SUMMARY | 2024-05-27 00:36 | XMS_ITS | Encounter Summary ---
Author Organization [facility] [place] [address] Care Team Providers Care Sleep Lab Technologist Name Role Phone Erinn Walters DULL COAT MILL OPERATOR Primary Care Provider [phone]- [phone] Encounter Details Date Type Department Care Team ([facility] Contact Info) Description 05/28/2018 Telephone Primary Care at [address] [address] Erinn Walters, DULL COAT MILL OPERATOR [address] [place] [address] Social History Tobacco Use Types Packs/Day Years Used Date Smoking Tobacco: Former Cigarettes Q uit: 04/21/2003 Smokeless Tobacco: Never Sex and Gender Information Value Date Recorded Sex Assigned at Not on file Gender Identity Not on file Sexual Orientation Not on file documented as of this encounter Miscellaneous Notes * Telephone Encounter - Bella Wick RN - 05/28/2018 12:46 PM EST Fax received from neuro-( sent for scanning) they will not schedule patient until she has been seenby PCP. They request referral be resubmitted once she sees PCP. Patient is currently scheduled for 07/01- will attempt to bring in sooner for physical . Email sent documented in this encounter Plan of Treatment Not on file documented as of this encounter Visit Diagnoses Not on filedocumented in this encounter Care Teams Sleep Lab Technologist Relationship Specialty Start Date End Date Erinn Walters, DULL COAT MILL OPERATOR [address] [place] [address] PCP - General 04/03/11 04/29/24 documented as of this encounter
--- OUTSIDE RECORDS SUMMARY | 2024-05-27 00:36 | XMS_ITS | Encounter Summary ---
[place] [address] Care Team Providers Care Daycare Director Name Role Phone Erinn Walters APRN Primary Care Provider [phone]- [phone] Encounter Details Date Type Department Care Team ([facility] st Contact Info) Description 03/24/2015 Orders Only Primary Care at [address] [address] Delma Camacho RMA None Social History Tobacco Use Types Packs/Day Years Used Date Smoking Tobacco: Never Sex and Gender Information Value Date Recorded Sex Assigned at Not on file Gender Identity Not on file Sexual Orientation Not on file documented as of this encounter Plan of Treatment Not on file documented as of this encounter Visit Diagnoses Not on filedocumented in this encounter Care Teams Daycare Director Relationship Specialty Start Date End Date Erinn Walters APRN [address] [place] [address] PCP - General 04/03/11 04/29/24 documented as of this encounter
--- OUTSIDE RECORDS SUMMARY | 2024-05-27 00:36 | XMS_ITS | Encounter Summary ---
[place] [address] Care Team Providers Care Measuring Machine Tender Name Role Phone Sheridan Arias PAD MACHINE FEEDER Primary Care Provider [phone]- [phone] Reason for Visit * Reason Comments Other Encounter Details Date Type Department Care Team ([facility] Contact Info) Description 03/27/2015 Telephone Primary Care at [address] [address] Sheridan Arias, PAD MACHINE FEEDER [address] [place] [id number] Social History Tobacco Use Types Packs/Day Years Used Date Smoking Tobacco: Never Sex and Gender Information Value Date Recorded Sex Assigned at Not on file Gender Identity Not on file Sexual Orientation Not on file documented as of this encounter Miscellaneous Notes * Telephone Encounter - Malissa Bill RN - 03/27/2015 10:08 AM EST Order entered to match information below Called lab to confirm- who states they can still use specimen * Telephone Encounter - Dianelys Patel MD - 03/27/2015 9:31 AM EST Yes, please. The order was entered by the MA so please let the MA know what the correct order wouldbe for future reference. * Telephone Encounter - Malissa Bill RN - 03/27/2015 9:15 AM EST Forward to Dr. Dianelys Patel For review * Telephone Encounter - Malissa Bill RN - 03/27/2015 9:15 AM EST ----- Message from Xochitl Roldan sent at 03/27/2015 8:44 AM EST ----- Contact: [facility] lab (ES) Triage Call PCP: SHERIDAN ARIAS APRN Caller Name (if other than the patient):Mary [facility] microbiology lab Best number to be reached at: [phone] Message: Need to get a corrected order for vaginal swab received. Orders received do not match up with vaginal swab received. Did she want HSV culture? Tests ordered by Dr. Patel. documented in this encounter Plan of Treatment Not on file documented as of this encounter Visit Diagnoses Diagnosis Vaginal discharge Leukorrhea, not specified as infective documented in this encounter Care Teams Measuring Machine Tender Relationship Specialty Start Date End Date Sheridan Arias APRN [address] [place] [address] PCP - General 04/03/11 04/29/24 documented as of this encounter
--- OUTSIDE RECORDS SUMMARY | 2024-05-27 00:36 | XMS_ITS | Encounter Summary ---
[place] [address] Care Team Providers Care Armature And Rotor Winder Name Role Phone Erinn Walters APRN Primary Care Provider [phone] Reason for Visit * Reason Onset Date Comments New Medication Request 01/15/2018 Encounter Details Date Type Department Care Team ([facility] st Contact Info) Description 01/15/2018 Telephone Primary Care at [address] [address] Kim Magana RN New Medication Request Social History Tobacco Use Types Packs/Day Years Used Date Smoking Tobacco: Former Cigarettes Q uit: 04/21/2003 Smokeless Tobacco: Never Sex and Gender Information Value Date Recorded Sex Assigned at Not on file Gender Identity Not on file Sexual Orientation Not on file documented as of this encounter Miscellaneous Notes * Telephone Encounter - Kim Magana RN - 01/15/2018 8:48 AM EDT Per Erinn Walters APRN - ok for Diflucan 150 mg one by mouth, # 1. Prescription sent to [facility] as requested. Message left for Patient. * Telephone Encounter - Kim Magana RN - 01/15/2018 7:52 AM EDT Jan 15, 2018 7:18 AM Lia Saleem wrote: ? Message: Patient is calling to request a prescription for a yeast infection. Patient is currently in [place] and does not want to travel to [place]. ? Spoke with Patient - she reports vaginal irritation, vaginal itching. Says she just switched soaps thinking it might help but it did not. Patient states she is currently having her menses. Says she has had a few yeast infections over the years and this irritation feels similar to a yeast infection to her. Patient requests a prescription for medication to treat a yeast infection be sent to [place], [place]. Message forwarded to Erinn for review. documented in this encounter Plan of Treatment Not on file documented as of this encounter Visit Diagnoses Not on filedocumented in this encounter Care Teams Armature And Rotor Winder Relationship Specialty Start Date End Date Erinn Walters, CELL LINER [address] [place] [address] PCP - General 04/03/11 04/29/24 documented as of this encounter
--- OUTSIDE RECORDS SUMMARY | 2024-05-27 00:36 | XMS_ITS | Encounter Summary ---
Author Organization [facility] Address [facility] [place] [address] Care Team Providers Care Claims Specialist Name Role Phone Erinn Walters APRN Primary Care Provider [phone] Reason for Visit * Reason Comments Establish Care colpo LGSIL & HRHPV Procedure * Consultation (Routine) - Closed Specialty Diagnoses / Procedures Referred By Melinda gastelum Referred To Contact Obstetrics and Gynecology Diagnoses LGSIL on Pap smear of cervix Vaginal high risk HPV DNA test positive Erinn Walters APRN [address] [place] [id number] [employer] [place] [phone] Referral ID Status Reason Start Date Expiration Date V isits Requested Visits Authorized [id number] Closed Specialty Service Requested 05/02/2017 05/02/2018 1 1 Encounter Details Date Type Department Care Team (Latest Contact Info) Description 05/12/2017 10:45 AM EST Procedure visit Obstetrics and Gynecology at [address] [address] Lang Tavares MD Cervical high risk human papillomavirus (HPV) DNA test positive; LGSIL on Pap smear of cervix Social History Tobacco Use Types Packs/Day Years Used Date Smoking Tobacco: Former Cigarettes Q uit: 04/21/2003 Smokeless Tobacco: Never Sex and Gender Information Value Date Recorded Sex Assigned at Not on file Gender Identity Not on file Sexual Orientation Not on file documented as of this encounter Last Filed Vital Signs Vital Sign Reading Time Taken Comments Blood Pressure 112/68 05/12/2017 10:31 AM EST Pulse - - Temperature - - Respiratory Rate - - Oxygen Saturation - - Inhaled Oxygen Concentration - - Weight 61.2 kg (135 lb) 05/12/2017 10:31 AM EST Height 167.6 cm (5' 6) 05/12/2017 10:31 AM EST Body Mass Index 21.79 05/12/2017 10:31 AM EST documented in this encounter Progress Notes * Lang Tavares MD - 05/12/2017 10:45 AM EST Episodic Visit - Cash Grain Farmer Mariluz Dimas is a 31 y.o. No obstetric history on file. here today for Colposcopy for abnormalpap. She had a pap a year a ago that was normal but +HPV, this year had a pap with LGSIL and +HR HPV but non-16 or 18. I discussed abnormal pap smears and their evaluation. Patient Active Problem List Diagnosis Code ??? Anemia D64.9 ??? Dyschromia L81.9 ??? Lentigo L81.4 ??? Disorder of skin or subcutaneous tissue L98.9 ??? Benign neoplasm of other specified sites of skin D23.9 ??? Thalassemia D56.9 ??? Encounter for screening for malignant neoplasm of skin Z12.83 ??? Convulsions R56.9 ??? Preventative health care Z00.00 History Sexual Activity ??? Sexual activity: Not on file PMHx, FHx, SHx reviewed and updated as indicated. No past medical history on file. Past Surgical History: Procedure Laterality Date ??? WISDOM TOOTH EXTRACTION OB History No data available No family history on file. Social History Social History ??? Marital status: Single Spouse name: N/A ??? Number of children: N/A ??? Years of education: N/A Occupational History ??? Not on file. Social History Main Topics ??? Smoking status: Former Smoker Quit date: 04/21/2003 ??? Smokeless tobacco: Never Used ??? Alcohol use Not on file ??? Drug use: Not on file ??? Sexual activity: Not on file Other Topics Concern ??? 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 Diagnoses and all orders for this visit: Cervical high risk human papillomavirus (HPV) DNA test positive - POCT urine LGSIL on Pap smear of cervix PROCEDURE NOTE COLPOSCOPY: Patient presents for colposcopy for pap showing LGSIL with HR HPV but non 16 or 18 . We discussed abnormal pap smears, their significance, evaluation and possible treatment modes for abnormalities found. Patient desired to proceed. Patient was placed in the lithotomy position on the procedure table. Cervix was identified with speculum. Acetic acid was applied to the cervix and vaginal cardona. After application of acetic acid the cervix was inspected with the colposcope. Inspection revealed no lesions. I recommend a repeat pap with HPV testing in 1 year. documented in this encounter Plan of Treatment Not on file documented as of this encounter Procedures Procedure Name Priority Date/Time Associated Diagnosis Comments POCT URINE Routine 05/12/2017 Cervical high risk human papillomavirus (HPV) DNA test positive documented in this encounter Results * POCT urine (05/12/2017) POC Urine HCG Negative Negative - Negative POC Control Internal Controls Acceptable Lang Tavares MD POINT OF CARE TEST O RDERABLES documented in this encounter Visit Diagnoses Diagnosis Cervical high risk human papillomavirus (HPV) DNA test positive LGSIL on Pap smear of cervix documented in this encounter Care Teams Claims Specialist Relationship Specialty Start Date End Date Erinn Walters, SUBSTANCE ABUSE SPECIALIST [address] [place] [address] PCP - General 04/03/11 04/29/24 documented as of this encounter
--- OUTSIDE RECORDS SUMMARY | 2024-05-27 00:36 | XMS_ITS | Encounter Summary ---
Author Organization [facility] [place] [address] Care Team Providers Care Alterations Tailor Name Role Phone Erinn Walters REGINA Primary Care Provider [phone]- [phone] Encounter Details Date Type Department Care Team ([facility] st Contact Info) Description 04/05/2016 External Results [facility] [employer] [address] [place] [address] Provider, His Jacqueline MD None Social History Tobacco Use Types Packs/Day [...] Procedure Name Priority Date/Time Associated Diagnosis Comments [facility] [place]NAL [place] PANEL Routine 04/05/2016 documented in this encounter Results * (ABNORMAL) External Chem Lab for [place] Nutrition Aide (04/05/2016) HSV Type I IgG <0.91(Exte rnal Lab) HSV Type II IgG <0.91(Exte rnal Lab) HIV 1/2 Ab Non-Reacti ve(Externa l Lab) Comment:4th Generation Hepatitis B Surface Antibody Reactive(E XTERNAL/AB N) Hepatitis C Antibody <0.1(Exter nal Lab) 04/05/2016 Jil Gaston MD POINT OF CARE TEST O RDERABLES documented in this encounter Visit Diagnoses Not on filedocumented in this encounter Care Teams Alterations Tailor Relationship Specialty Start Date End Date Erinn Walters, MEDICAL RESEARCHER [address] [place] [address] PCP - General 04/03/11 04/29/24 documented as of this encounter
--- OUTSIDE RECORDS SUMMARY | 2024-05-27 00:36 | XMS_ITS | Encounter Summary ---
[place] [address] Care Team Providers Care Showroom Consultant Name Role Phone Erinn Walters APRN Primary Care Provider Encounter Details Date Type Department Care Team (Latest Contact Info) Description 11/13/2016 9:50 AM EDT Laboratory Appointment Lab at [address] [address] Preventative health care Social History Tobacco Use Types Packs/Day Years [...] Procedure Name Priority Date/Time Associated Diagnosis Comments HSV 1 AND 2 IGG ANTIBODIES Routine 11/13/2016 9:49 AM EDT Preventative health care HEPATITIS C ANTIBODY Routine 11/13/2016 9:49 AM EDT Preventative health care SYPHILIS ANTIBODY SCREEN WITH REFLEX Routine 11/13/2016 9:49 AM EDT Preventative health care HIV SCREEN, 4TH GENERATION ([facility])PE RFORMABLE Routine 11/13/2016 9:49 AM EDT Preventative health care HEPATITIS B SURFACE ANTIBODY Routine 11/13/2016 9:49 AM EDT Preventative health care documented in this encounter Results * Syphilis Antibody (11/13/2016 9:49 AM EDT) Syphilis IgG/IgM Negative Negative [facility] Blood specimen (specimen) 11/13/2016 9:49 AM EDT 11/13/2016 12:16 PM EDT Narrative Resulting Agency Comment Spec In Lab Erinn Walters APRN CHEMISTRY ORDERABLE S Performing Organization Address City/[facility]/ZIP Co de Phone Number [facility] [place] [address] * HSV 1 and 2 IgG Antibodies (11/13/2016 9:49 AM EDT) Pathologist [facility] HSV Type 1 Ab, IgG Neg Neg [facility] HSV Type 2 Ab, IgG Neg Neg [facility] Blood specimen (specimen) 11/13/2016 9:49 AM EDT 11/14/2016 10:30 AM EDT Narrative Resulting Agency Comment Spec In Lab Jil Gaston MD IMMUNOLOGY ORDERABLE S Performing Organization Address [facility]/ZIP Co de Phone Number [facility] [place] [address] * HIV Screen, 4th Generation (11/13/2016 9:49 AM EDT) Pathologist [facility] HIV Ab/Ag Screen Negative Negative [facility] Comment: This 4th Generation HIV test [...] Gaston MD CHEMISTRY ORDERABLES Performing Organization Address City/[facility]/ZIP Co de Phone Number [facility] [place] [address] * Hepatitis C Antibody (11/13/2016 9:49 AM EDT) Hepatitis C Antibody Negative Negative [facility] Comment: An updated Hepatitis C Ab assay reagent was implemented on 07/03/16. Please contact Dr. Fernandez at [phone] with any questions or concerns. Blood specimen (specimen) 11/13/2016 9:49 AM EDT 11/13/2016 12:16 PM EDT Narrative Resulting Agency Comment Spec In Lab Jil Gaston MD CHEMISTRY ORDERABLES Performing Organization Address City/[facility]/ZIP Co de Phone Number [facility] [place] [address] * Hepatitis B Surface Antibody (11/13/2016 9:49 AM EDT) Hepatitis B Surface Antibody, Quantitative >1,000.0 IU/L [facility] Comment: HepB Surface Ab Quant: Unvaccinated: < 8.5 IU/L Vaccinated: > 11.5 IU/L Hepatitis B Surface Antibody Positive [facility] Comment: Patient is considered to be immune to HBV infection. Expected Results: Vaccinated: Positive Unvaccinated: Negative Blood specimen (specimen) 11/13/2016 9:49 AM EDT 11/13/2016 12:16 PM EDT Narrative Resulting Agency Comment Spec In Lab Jil Gaston MD CHEMISTRY ORDERABLES Performing Organization Address City/[facility]/ZIP Co de Phone Number [facility] [place] [address] documented in this encounter Visit Diagnoses Diagnosis Preventative health care Routine general medical examination at a health care facility documented in this encounter Care Teams Showroom Consultant Relationship Specialty Start Date End Date Erinn Waletrs, RISK MANAGEMENT MANAGER [address] [place] [address] PCP - General 04/03/11 04/29/24 documented as of this encounter
--- OUTSIDE RECORDS SUMMARY | 2024-05-27 00:36 | XMS_ITS | Encounter Summary ---
[place] [address] Care Team Providers Care Activity Director Name Role Phone Erinn Walters APRN Primary Care Provider [phone] Reason for Visit * Reason Onset Date Comments Follow-up 12/24/2018 Encounter Details Date Type Department Care Team ([facility] st Contact Info) Description 12/24/2018 Telephone Primary Care at [address] [address] Kim Magana RN Follow-up Social History Tobacco Use Types Packs/Day Years Used Date Smoking Tobacco: Former Cigarettes Q uit: 04/21/2003 Smokeless Tobacco: Never Sex and Gender Information Value Date Recorded Sex Assigned at Not on file Gender Identity Not on file Sexual Orientation Not on file documented as of this encounter Miscellaneous Notes * Telephone Encounter - Kim Magana RN - 12/25/2018 9:54 AM EDT Patient called back - says her is going awesome; I'm feeling great. She confirms Dr. Cordero is managing her Lamictal therapy. Says her Lamictal dose has been changed to 150 mg twice a day.Med list updated. * Telephone Encounter - Kim Magana RN - 12/24/2018 8:03 AM EDT Per Erinn Walters APRN: Pt is and under care of [facility] Rec copy of lamictal level drawn on 12/03/[address] Cordero. Lamictal level is low at 1.3 (2.5-15.0). Has this been handled? How is the pregnacy going? Note Patient's Lamictal level is being followed by Dr. Cordero at the [facility]. See the scanned in neurology notes. Call to Patient - Left message on voice mail for return call. documented in this encounter Plan of Treatment Not on file documented as of this encounter Visit Diagnoses Not on filedocumented in this encounter Care Teams Activity Director Relationship Specialty Start Date End Date Erinn Walters, [employer] [address] [place] [address] PCP - General 04/03/11 04/29/24 documented as of this encounter
--- OUTSIDE RECORDS SUMMARY | 2024-05-27 00:36 | XMS_ITS | Encounter Summary ---
Author Organization [facility] [place] [address] Care Team Providers Care Receiver Stocker Name Role Phone Erinn Walters APRN Primary Care Provider Reason for Visit * Reason Onset Date Comments Referral 06/03/2018 Encounter Details Date Type Department Care Team ([facility] st Contact Info) Description 06/03/2018 Telephone Primary Care at [address] [address] Kim Magana, quebracho tanner Social History Tobacco Use Types Packs/Day Years Used Date Smoking Tobacco: Former Cigarettes Q uit: 04/21/2003 Smokeless Tobacco: Never Sex and Gender Information Value Date Recorded Sex Assigned at Not on file Gender Identity Not on file Sexual Orientation Not on file documented as of this encounter Miscellaneous Notes * Telephone Encounter - Saira Childress LPN - 06/10/2018 3:55 PM EST Spoke to Patient and advised of the below. She also states that PCP had agreed to help fill her medications in transition. She states that she is running low on her Lamictal. Confirmed dose and instructions. Confirmed pharmacy * Telephone Encounter - Erinn Walters APRN - 06/10/2018 1:38 PM EST Please relay to pt her ref request has been sent to Neuro at [facility]. * Telephone Encounter - Kim Magana, RN - 06/03/2018 11:16 AM EST Jun 03, 2018 11:08 AM Donna Mohamud wrote: Patient called - she is requesting a referral to the Neurology Department at [facility] for seizures Who suggested the referral: Self Office Office Note Patient had been referred to [facility] on 05/27/16 and they did not want to schedule Patient until she had a follow up appt with Erinn. See email dated 05/28/18. Note Patient has a physical with Erinn scheduled for 07/01/18. Spoke with Patient - says [facility] has made her so mad that she does not want to deal withthem anymore. Patient requests a new referral be sent to the above facility. Patient is aware Eds not available until 06/09/18 to review her request and says that is fine. Message forwarded to Erinn for review. documented in this encounter Plan of Treatment Not on file documented as of this encounter Visit Diagnoses Not on filedocumented in this encounter Care Teams Receiver Stocker Relationship Specialty Start Date End Date Erinn Walters, REHABILITATION SERVICES COORDINATOR [address] [place] [address] PCP - General 04/03/11 04/29/24 documented as of this encounter
--- OUTSIDE RECORDS SUMMARY | 2024-05-27 00:36 | XMS_ITS | Clinical Summary ---
Author Organization [facility] Address [facility] [place] [address] Care Team Providers Care Hoisting Engineer Pile Driving Name Role Phone Unknown Primary Care Provider Unavailabl e Allergies Active Allergy Reactions Criticality Noted Date Comments Amoxicillin Hives,Rash 03/24/2015 Medications Medication Sig Dispensed Refills Start Date End Date Status b complex vitamins Capsule Take 1 capsule by mouth daily. 06/30/2014 Active Biotin-Calcium Carbonate 800-195 mcg-mg Tablet Take 1 tablet by mouth daily. 06/30/2014 Active cholecalciferol, Vitamin D3, 1,000 unit Tablet Take 3 tablets by mouth daily. 06/30/2014 Active multivitamin (THERAGRAN) Tablet Take 1 tablet by mouth daily. Active lamoTRIgine (LAMICTAL) 150 mg TabletIndications:per Dr. Cordero Take 150 mg by mouth 2 times daily. Indications: per Dr. Cordero Active Active Problems Problem Noted Date Diagnosed Date Pelvic pain in female 07/10/2018 Assessment & Plan (07/10/2018 7:36 AM EDT): No alarming findings Pt reassured but will obt USN Pt would prefer USN in [place] will let me know where to send order Screening for cervical cancer 07/10/2018 Mastodynia 07/10/2018 Assessment & Plan (07/10/2018 7:38 AM EDT): Bilat tenderness and cobblestone texture Advised to reduce caffeine and try Evening Blockton Oil supplements If R breast remains tender with texture change after menses, would US. Pt will re examine and let me know Preventative health care 04/03/2016 Assessment & Plan (07/10/2018 7:35 AM EDT): Disc dietary and exercise needs of this age group Pap obt Disc addition of Evening Blockton Oil Will ck lamictal level Ref to neurology and derm Obt USN Assessment & Plan (04/09/2017 1:42 PM EST): Nl exam PAP and labs Ref for derm ck Assessment & Plan (11/17/2016 1:25 PM EDT): Will recheck STD screen Advised pt her skin changes are not STD related Assessment & Plan (04/15/2016 11:00 AM EST): Will repeat STD screen Not due for labs otherwise PAP obtained F/u 1 yr and PRN Lentigo 07/21/2014 Disorder of skin or subcutaneous tissue 07/22/19 15 Assessment & Plan (04/09/2017 1:42 PM EST): Refer for mole ck Benign neoplasm of other specified sites of skin 07/21/2014 Encounter for screening for malignant neoplasm o f skin 06/01/2013 Dyschromia 08/04/2012 Assessment & Plan (07/10/2018 7:36 AM EDT): Needs annual skin check Would rather [place] region Thalassemia 05/25/2008 Anemia 05/21/2007 Convulsions 03/16/2004 Assessment & Plan (07/10/2018 7:37 AM EDT): Ref to new neurologist is done Pt will obt lamictal level pending same. No change in meds Assessment & Plan (04/09/2017 1:42 PM EST): Sees neuro No seizures in over 10 yrs Assessment & Plan (04/15/2016 11:01 AM EST): No changes in meds No recent seizures. Sees neurologist Resolved Problems Problem Noted Date Diagnosed Date Resolved Date Rash and other nonspecific skin eruption 11/17/2016 04/09/2017 Assessment & Plan (11/17/2016 1:25 PM EDT): Appears insect related But unclear Will refer to derm Also lesion reappearing within prev scar excision on her back. Annual physical exam 04/15/2016 017 Possible exposure to STD 02/01/2016 Assessment & Plan (02/01/2016 2:12 PM EDT): Disc should obt Hep panel and HIV in 3 months Will ck GC/Chlamydia Visit predom by day camp counselor and support Exam is overtly normal Iron deficiency anemia 03/24/201504/09 Encounter for screening for infections with predominantly sexual mode of transmission 06/30/2014 04/15/2016 Contact dermatitis 03/24/2013 6 Cheilitis 02/04/2013 04/15/2016 Encounter for general adult medical examination without abnormal findings 06/07/2009 Onychomycosis due to dermatophyte 02/07/2005 04/03/2016 Immunizations Name Administration Dates Next Due Influenza Trivalent, Preservative Free 6(Deferred: Patient Refused) Td Adult, Unspecified Formulation 03/06/2005 Tdap (Adacel, Boostrix) 06/30/2014 Social History Tobacco Use Types Packs/Day Years Used Date Smoking Tobacco: Former Cigarettes Q uit: 04/21/2003 Smokeless Tobacco: Never Sex and Gender Information Value Date Recorded Sex Assigned at Not on file Gender Identity Not on file Sexual Orientation Not on file Last Filed Vital Signs Vital Sign Reading Time Taken Comments Blood Pressure 110/74 07/01/2018 1:26 PM EDT Pulse 88 07/01/2018 1:26 PM EDT Temperature 36.9 ??C (98.4 ??F) 07/01/2018 1:26 PM ED T Respiratory Rate 14 11/13/2016 8:52 AM EDT Oxygen Saturation 100% 07/01/2018 1:26 PM EDT Inhaled Oxygen Concentration - - Weight 64.9 kg (143 lb) 07/01/2018 1:26 PM EDT Height 167.8 cm (5' 6.06) 07/01/2018 1:26 PM ED T Body Mass Index 23.04 07/01/2018 1:26 PM EDT Plan of Treatment Health Maintenance Due Date Last Done Comments HPV test 07/02/2023 07/01/2018, 03/22, 04/03/2016, Additional history exists PAP Smear 07/02/2023 07/01/2018, 03/22, 04/03/2016, Additional history exists Covid-19 Vaccine (1 - 2023-2 5 season) 2023 Influenza (Flu) vaccine (1 o f 1 - Influenza standard series) 12/21/2023 Tetanus/Diphtheria/Pertussis Vaccines (2 - Td or Tdap) 06/30/2024 06/30/2014, 03/06/2005 HIV screen Completed 11/13/2016, 04/05/2016 Hepatitis C Screening Completed 11/13/2016, 016 Procedures Procedure Name Priority Date/Time Associated Diagnosis Comments HPV Routine 07/01/2018 2:20 PM EDT DOPE EDGER CYTOLOGY FINAL REPORT Routine 07/01/2018 2:20 PM EDT HIV SCREEN, 4TH GENERATION [place]PE RFORMABLE Routine 11/13/2016 9:49 AM EDT Preventative health care HEPATITIS C ANTIBODY Routine 11/13/2016 9:49 AM EDT Preventative health care from Last 3 Months or Most Recently Relevant to Health Maintenance Results * HPV (07/01/2018 2:20 PM EDT) HPV16 NEGATIVE NEGATIVE [facility] HPV 18 NEGATIVE NEGATIVE [facility] HPV Other HR NEGATIVE NEGATIVE [facility] HPV Interpretation See Comment [facility] Comment: NEGATIVE for high-risk HPV *. * Testing negative for high risk HPV means that the specimen is negative for the following 14 types tested: ??types 16, 18, 31, 33, 35, 39, 45, 51, 52, 56, 58, 59, 66, and 68. ??The test is not intended to detect low risk HPV types. Memo Michael HPV test Specimen: HPV Testing - Cytology Liquid Based Prep Cervical swab (specimen) 07/01/2018 2:20 PM EDT 07/01/2018 8:50 PM EDT Narrative Resulting Agency Comment Spec In Lab Erinn Voss Selena TAPIA PATHOLOGY/CYTOLOGY ORDERABLES [facility] [place] [address] * Fleet Mechanic Cytology Final Report (07/01/2018 2:20 PM EDT) Fleet Mechanic Cytology Final Report [id number] ? Location: [place] The signing pathologist has (i) examined the relevant preparation(s) for the specimen(s) and (ii) rendered or confirmed the diagnosis(es). . ? Fleet Mechanic Final DIAGNOSIS Normal Negative for intraepithelial lesion or malignancy (NILM). For consensus guidelines for the management of cervical cancer screening test results, please see: ?? http://www.asccp.o rg . Electronically signed by: ??Basil MERCADO(ASCP)Frances Verified: ??07/14/2018 ?Global Project Manager Performed at: ??[place] [place], [place], [place] DISCUSSION Fungal organisms morphologically consistent with Darshana species are present. HPV RESULTS HPV16 (Result) ?Negative HPV18 (Result) ?Negative HPVOHR (Result) ? Negative HPV (Interpretation) ?See Below HPV (Interpretation) Text: NEGATIVE for high-risk HPV *. *Testing negative for high risk HPV means that the specimen is negative for the following 14 types tested: types 16, 18, 31, 33, 35, 39, 45, 51, 52, 56, 58, 59, 66, and 68. The test is not intended to detect low risk HPV types. Memo michael HPV test Specimen: HPV Testing - Cytology Liquid Based Prep The Memo michael ? HPV test was validated, performed and results reported through the [facility] ([facility]) at [facility]. ? - Fernie Morales, PhD, [facility], Director-[facility] STATEMENT OF ADEQUACY Specimen submitted is satisfactory. Endocervical component present. CLINICAL INFORMATION HPV Option: ?Concurrent HPV and Pap CT/NG Option: ?? No Preparation: ? Liquid based Pap Specimen Source: ? Cervical/Endocervi john/Vaginal LMP: ? 05/30/18 Hormones?: ? No Hysterectomy?: ? No ?: ? No ?: ? No I.U.D.?: ? No Pelvic Radiation: ?No Prior DOPE EDGER Therapy?: ?Other (comment) Hist Abnl Pap/Biopsy?: ?? Yes, history of previous abnormal Pap Hist of HPV Vaccine?: ?No Hist of Smoking?: ?Yes Hist of LEONARD exposure?: ?? No . CLINICAL INFORMATION ICD Diagnosis: ? Z12.4 Encounter for screening for malignant neoplasm of cervix Clinical Data, Significant Therapy and Clinical Impression ?? : ?colposcopy, yeast infec today. This Pap Test has been evaluated with the assistance of the [employer] Pap Test Imaging System. Note: The Pap test is a screening test for cervical cancer with an inherent false-negative rate dependent upon several variables. For further information please contact the [facility]. Reference: Gen INMAN. Clerical Aide of Pap Smear Results. In: Kat BS, Jh HH, ed. The Pap Smear. [facility] [place]: Allan, 2002: 71-77. [facility] 07/01/2018 2:20 PM EDT Erinn Walters APRN PATHOLOGY/CYTOLOGY ORDERABLES [facility] [place] [address] * Hepatitis C Antibody (11/13/2016 9:49 AM EDT) Hepatitis C Antibody Negative Negative [facility] Comment: An updated Hepatitis C Ab assay reagent was implemented on 07/03/16. Please contact Dr. Fernandez at [phone] with any questions or concerns. Blood specimen (specimen) 11/13/2016 9:49 AM EDT 11/13/2016 12:16 PM EDT Narrative Resulting Agency Comment Spec In Lab Jil Gaston MD CHEMISTRY ORDERABLES Performing Organization Address City/[facility]/ZIP Co de Phone Number [facility] [place] [address] * HIV Screen, 4th Generation (11/13/2016 9:49 AM EDT) HIV Ab/Ag Screen Negative Negative [facility] Comment: This 4th Generation HIV [...] Gaston MD CHEMISTRY ORDERABLES Performing Organization Address City/[facility]/ZIP Co de Phone Number [facility] [place] [address] from Last 3 Months or Most Recently Relevant to Health Maintenance Care Teams Hoisting Engineer Pile Driving Relationship Specialty Start Date End Date Unknown None PCP - General 05/11/24
--- OUTSIDE RECORDS SUMMARY | 2024-05-27 00:36 | XMS_ITS | Encounter Summary ---
Author Organization [facility] Address [facility] [address] Care Team Providers Care Donor Services Coordinator Name Role Phone Erinn Walters APRN Primary Care Provider [phone] Reason for Referral * Consultation (Routine) - Closed Specialty Diagnoses / Procedures Referred By Melinda t Referred To Contact Diagnoses Convulsions, unspecified convulsion type Erinn Walters APRN [address] [place] [address] Neurology, [facility] [address] [place] [address] Referral ID Status Reason Start Date Expiration Date V isits Requested Visits Authorized [id number] Closed Consult, Test & Treat 06/10/2018 12/07/2018 1 1 Scheduling Instructions Pls fax neurology notes in scan documents from 03/09/2015 and 04/19/2015. Encounter Details Date Type Department Care Team ([facility] st Contact Info) Description 06/10/2018 Orders Only Primary Care at [address] [address] Erinn Walters APRN [address] [place] [address] Convulsions, unspecified convulsion type Social History Tobacco Use Types Packs/Day Years Used Date Smoking Tobacco: Former Cigarettes Q uit: 04/21/2003 Smokeless Tobacco: Never Sex and Gender Information Value Date Recorded Sex Assigned at Not on file Gender Identity Not on file Sexual Orientation Not on file documented as of this encounter Plan of Treatment Scheduled Referrals Name Type Priority Associated Diagnoses Orde r Schedule Referral to Neurology Outpatient Referral Routine Convulsions, unspecified convulsion type Ordered: 06/10/2018 documented as of this encounter Visit Diagnoses Diagnosis Convulsions, unspecified convulsion type documented in this encounter Care Teams Donor Services Coordinator Relationship Specialty Start Date End Date Erinn Walters, WATCH AND CLOCK MAKER AND REPAIRER [address] [place] [address] PCP - General 04/03/11 04/29/24 documented as of this encounter
--- OUTSIDE RECORDS SUMMARY | 2024-05-27 00:36 | XMS_ITS | Encounter Summary ---
Author Organization [facility] [place] [address] Care Team Providers Care Level Vial Inspector Name Role Phone Erinn Walters APRN Primary Care Provider [phone] Reason for Visit * Reason Comments Vaginitis Pt thought it could be yeast, tried monistat ovual 4 days ago Encounter Details Date Type Department Care Team ([facility] st Contact Info) Description 03/24/2015 7:00 PM EST Office Visit Primary Care at [address] [address] Dianelys Patel MD [address] [address] Adnexal mass; Vaginal discharge Social History Tobacco Use Types Packs/Day Years Used Date Smoking Tobacco: Never Sex and Gender Information Value Date Recorded Sex Assigned at Not on file Gender Identity Not on file Sexual Orientation Not on file documented as of this encounter Last Filed Vital Signs Vital Sign Reading Time Taken Comments Blood Pressure 110/70 03/24/2015 6:58 PM EST Pulse 87 03/24/2015 6:58 PM EST Temperature 36.9 ??C (98.4 ??F) 03/24/2015 6:58 PM ES T Respiratory Rate - - Oxygen Saturation 100% 03/24/2015 6:58 PM EST Inhaled Oxygen Concentration - - Weight 58.1 kg (128 lb) 03/24/2015 6:58 PM EST Height 167 cm (5' 5.75) 03/24/2015 6:58 PM EST Body Mass Index 20.82 03/24/2015 6:58 PM EST documented in this encounter Patient Instructions * Patient Instructions* Dianelys Patel MD - 03/24/2015 7:30 PM EST We did cultures on the vaginal discharge but I think this is a yeast infection and did not see anything to suggest herpes. You had a fullness in the region of the left ovary so I've ordered an ultrasound. documented in this encounter Progress Notes * Dianelys Patel MD - 03/24/2015 7:11 PM EST Subjective: Patient ID: Mariluz Dimas is a 29 y.o. female. HPI Comments: She is here alone today, no family members or companions are here with her. Starting just before Thanksgiving, with severe itching, redness and irritated. Thought it was a yeast infection and treated with Monistat 1 day Ovule. Has a new sexual partner and had unprotected sexone night and this followed shortly after. Notes a little discharge, no blood in the discharge but this AM when she wiped there was a tiny amount of blood and she figured it was due to irritation. Nopain with intercourse. Menses have been OK. No abdominal pain, no f/c. Review of Systems Objective: Physical Exam Constitutional: She appears well-developed and well-nourished. No distress. HENT: Head: Normocephalic and atraumatic. Genitourinary: Normal external genitalia. Copious creamy discharge, vaginal mucosa not inflamed, no cervicitis. Swabs taken for yeast/BV/trich and endocervical swab for GC/Chlamydia and for HSV. Bimanual exam revealed normal sized anteverted uterus, right adnexa negative, left adnexa with firmmass slightly high in the adnexa, ? If ovarian or adjacent full colon. Skin: Skin is warm and dry. No rash noted. She is not diaphoretic. Psychiatric: She has a normal mood and affect. Her behavior is normal. Judgment and thought contentnormal. Vitals reviewed. Assessment and Plan: Vaginitis Samples sent for culture. Left adnexal mass Pelvic UL ordered. documented in this encounter Plan of Treatment Not on file documented as of this encounter Procedures Procedure Name Priority Date/Time Associated Diagnosis Comments GC/CHLAMYDIA Routine 03/24/2015 7:47 PM EST Vaginal discharge GC/CHLAM Routine 03/24/2015 7:47 PM EST Vaginal discharge BACTERIAL VAGINOSIS SCREEN ([facility] [place]/[place]D/NLH) Routine 03/24/2015 7:47 PM EST Vaginal discharge TRICHOMONAS SCREEN Routine 03/24/2015 7: 47 PM EST Vaginal discharge YEAST CULTURE Routine 03/24/2015 7:47 PM EST Vaginal discharge HSV CULTURE Routine 03/24/2015 7:36 PM EST documented in this encounter Results * GC/Chlam (03/24/2015 7:47 PM EST) GC Gene Amp Negative Negative [facility] Comment: The only FDA approved specimen types for this assay are cervix, vagina, urethra and urine. ??The sensitivity and specificity of the assay for other specimen types has not been determined. GC Source Cervical CERNER MILLENNIUM Chlamydia Gene Amp Negative Negative [facility] MILLENNIUM Comment: The only FDA approved specimen types for this assay are cervix, vagina, urethra and urine. ??The sensitivity and specificity of the assay for other specimen types has not been determined. Chlm Source Cervical CERNER MILLENNIUM Cervical swab (specimen) 03/24/2015 7:47 PM EST 03/24/2015 10:47 PM EST Narrative Resulting Agency Comment Spec In Lab Dianelys Patel MD MICROBIOLOGY - [facility] ORDERABLES [facility] JENNIFERENNIUM * Yeast culture Vaginal (03/24/2015 7:47 PM EST) Yeast Culture No Yeast isolated CERNER MILLENNIUM Vaginal 03/24/2015 7:47 PM EST 03/24/2015 10:47 PM EST Narrative Resulting Agency Comment Spec In Lab Dianelys Patel MD MICROBIOLOGY - GE NERAL ORDERABLES Performing Organization Address [facility] de Phone Number [facility] * Trichomonas screen (03/24/2015 7:47 PM EST) Trichomonas Vaginalis Antigen Screen Immunoassay Negative for Trichomonas Antigen [facility] Vaginal 03/24/2015 7:47 PM EST 03/24/2015 10:48 PM EST Narrative Resulting Agency Comment Spec In Lab Dianelys Patel MD MICROBIOLOGY - GE NERAL ORDERABLES Performing Organization Address [facility] de Phone Number [facility] * Bacterial Vaginosis Screen (03/24/2015 7:47 PM EST) Bacterial Vaginosis Screen Bacterial Vaginosis Screen: Negative [facility] Vaginal 03/24/2015 7:47 PM EST 03/24/2015 10:48 PM EST Narrative Resulting Agency Comment Spec In Lab Dianelys Patel MD MICROBIOLOGY - GE NERAL ORDERABLES Performing Organization Address [facility] Phone Number [facility] * Herpes Simplex Virus Culture (03/24/2015 7:36 PM EST) Herpes Simplex Virus Culture No Herpes Simplex Virus isolated in cell culture [facility] Vaginal 03/24/2015 7:36 PM EST 03/27/2015 10:48 AM EST Narrative Resulting Agency Comment Spec In Lab Dianelys Patel MD MICROBIOLOGY - GE NERAL ORDERABLES Performing Organization Address [facility] de Phone Number [facility] documented in this encounter Visit Diagnoses Diagnosis Adnexal mass Other specified symptom associated with female genital organs Vaginal discharge Leukorrhea, not specified as infective documented in this encounter Care Teams Level Vial Inspector Relationship Specialty Start Date End Date Erinn Walters, ASSEMBLER SKYLIGHTS [address] [place] [address] PCP - General 04/03/11 04/29/24 documented as of this encounter
--- OUTSIDE RECORDS SUMMARY | 2024-05-27 00:36 | XMS_ITS | Encounter Summary ---
[place] [address] Care Team Providers Care Harp Action Assembler Name Role Phone Erinn Walters COMPOSING ROOM MACHINIST APPRENTICE Primary Care Provider [phone]- [phone] Reason for Visit * Reason Comments Annual Exam Encounter Details Date Type Department Care Team ([facility] Contact Info) Description 07/01/2018 1:30 PM EDT Office Visit Primary Care at [address] [address] Erinn Walters, COMPOSING ROOM MACHINIST APPRENTICE [address] [place] [id number] Screening for cervical cancer; Convulsions, unspecified convulsion type; Pelvic pain in female; Preventative health care; Dyschromia; Mastodynia Social History Tobacco Use Types Packs/Day Years [...] 07/01/2018 1:26 PM ED T Respiratory Rate - - Oxygen Saturation 100% 07/01/2018 1:26 PM EDT Inhaled Oxygen Concentration - - Weight 64.9 kg (143 lb) 07/01/2018 1:26 PM EDT Height 167.8 cm (5' 6.06) 07/01/2018 1:26 PM ED T Body Mass Index 23.04 07/01/2018 1:26 PM EDT documented in this encounter Patient Instructions * Patient Instructions* Erinn Walters APRN - 07/01/2018 1:30 PM EDT Good to see you! I would consider Evening [place] Oil supplement for your breast tenderness. A reduction in caffiene would also be helpful. Pls recheck your R breast as we discussed. I have ordered an USN to check your Left ovary region due to your recent pain. I have sent a rx for your yeast infection. I will let you know the results of your lamictal level thru [facility]. Pls let me know where you want to be referred for a dermatology appt. documented in this encounter Progress Notes * Erinn Walters APRN - 07/01/2018 1:30 PM EDT Subjective: Patient ID: Mariluz Dimas is a 32 y.o. female. HPI Planning to move September 19 to a new apt. No seizures in many yrs. Has had really bad period cramps. Monthly cycles every 4.5 wks. Had dyspareunia in L adenexal region. Due for PAP Using condoms for BC Has some vaginal irritation. ? Yeast. No dysuria. Has bilat breast tenderness. Has inc in caffeine consumption. Would be willing to trial Evening [place] Oil. Review of Systems Constitutional: Negative. HENT: Negative. Eyes: Negative. Respiratory: Negative. Cardiovascular: Negative. Gastrointestinal: Negative. Musculoskeletal: Negative. Neurological: Negative. Psychiatric/Behavioral: Negative. Objective: Physical Exam Constitutional: She is oriented to person, place, and time. She appears well- developed and well-nourished. No distress. HENT: Head: Normocephalic. Right Ear: Tympanic membrane and external ear normal. Left Ear: Tympanic membrane and external ear normal. Nose: Nose normal. Mouth/Throat: Oropharynx is clear and moist. Eyes: Pupils are equal, round, and reactive to light. Conjunctivae and EOM are normal. No scleral icterus. Neck: Normal range of motion. Neck supple. No thyromegaly present. Cardiovascular: Normal rate and regular rhythm. Pulmonary/Chest: Effort normal and breath sounds normal. Breast exam bilat cobblestone texture R > L , rev with pt to rech 1 wk after menses Abdominal: Soft. Bowel sounds are normal. There is no tenderness. There is no guarding. Genitourinary: Uterus normal. Vaginal discharge found. Genitourinary Comments: No perineal lesions Nl urethra, labia, introitus and anus Vault with thick white d/c cx is smooth, non tender, no CMT, PAP obt Ovaries are palpable Sl tender L adenexa, no masses appreciated Uterus is of nl size and nontender Bladder is palpated as normal. Musculoskeletal: Normal range of motion. She exhibits no edema. Lymphadenopathy: She has no cervical adenopathy. Neurological: She is alert and oriented to person, place, and time. She displays normal reflexes. Skin: Skin is warm and dry. Psychiatric: She has a normal mood and affect. Assessment and Plan: .Preventative health care Disc dietary and exercise needs of this age group Pap obt Disc addition of Evening [place] Oil Will ck lamictal level Ref to neurology and derm Obt USN Pelvic pain in female No alarming findings Pt reassured but will obt USN Pt would prefer USN in [place] will let me know where to send order Dyschromia Needs annual skin check Would rather [place] region Convulsions Ref to new neurologist is done Pt will obt lamictal level pending same. No change in meds Mastodynia Bilat tenderness and cobblestone texture Advised to reduce caffeine and try Evening [place] Oil supplements If R breast remains tender with texture change after menses, would US. Pt will re examine and let me know documented in this encounter Miscellaneous Notes * Assessment & Plan Note - Erinn Walters APRN - 07/10/2018 7:37 AM EDT Associated Problem(s): Mastodynia Bilat tenderness and cobblestone texture Advised to reduce caffeine and try Evening [place] Oil supplements If R breast remains tender with texture change after menses, would US. Pt will re examine and let me know * Assessment & Plan Note - Erinn Walters APRN - 07/10/2018 7:36 AM EDT Associated Problem(s): Convulsions Ref to new neurologist is done Pt will obt lamictal level pending same. No change in meds * Assessment & Plan Note - Erinn Walters APRN - 07/10/2018 7:36 AM EDT Associated Problem(s): Dyschromia Needs annual skin check Would rather [place] region * Assessment & Plan Note - Erinn Walters APRN - 07/10/2018 7:35 AM EDT Associated Problem(s): Pelvic pain in female No alarming findings Pt reassured but will obt USN Pt would prefer USN in [place] will let me know where to send order * Assessment & Plan Note - Erinn Walters APRN - 07/10/2018 7:35 AM EDT Associated Problem(s): Preventative health care Disc dietary and exercise needs of this age group Pap obt Disc addition of Evening [place] Oil Will ck lamictal level Ref to neurology and derm Obt USN documented in this encounter Plan of Treatment Not on file documented as of this encounter Procedures Procedure Name Priority Date/Time Associated Diagnosis Comments HPV Routine 07/01/2018 2:20 PM EDT STUMP SHOOTER CYTOLOGY INTERPRETATION Routine 07/01/2018 2:20 PM EDT STUMP SHOOTER CYTOLOGY FINAL REPORT Routine 07/01/2018 2:20 PM EDT CYTOPATHOLOGY GYNECOLOGICAL Routine 07/01/2018 2:20 PM EDT Screening for cervical cancer documented in this encounter Results * [facility] Sander Cytology Final Report (07/01/2018 2:20 PM EDT) [facility] Cytology Final Report [id number] ? Location: [place] The signing pathologist has (i) examined the relevant preparation(s) for the specimen(s) and (ii) rendered or confirmed the diagnosis(es). . ? [facility]ander Final DIAGNOSIS Normal Negative for intraepithelial lesion or malignancy (NILM). For consensus guidelines for the management of cervical cancer screening test results, please see: ?? http://www.asccp.o rg . Electronically signed by: ??Basil MERCADO(ASCP)Frances Verified: ??07/14/2018 ?Security Guard Performed at: ??-[facility] Dept. of Pathology, [place], [place] DISCUSSION Fungal organisms morphologically consistent with [...] intended to detect low risk HPV types. Simris Algas HPV test Specimen: HPV Testing - Cytology Liquid Based Prep The Memo michael ? HPV test was validated, performed and results reported through the Laboratory for Clinical Genomics and Advanced Technology (CGAT) at [facility]. ? - Fernie Morales, PhD, HCLD, Director-[facility] STATEMENT OF ADEQUACY Specimen submitted is satisfactory. Endocervical component present. CLINICAL INFORMATION HPV Option: ?Concurrent HPV and Pap CT/NG Option: ?? No Preparation: ? Liquid based Pap Specimen Source: ? Cervical/Endocervi john/Vaginal LMP: ? 05/30/18 Hormones?: ? No Hysterectomy?: ? No ?: ? No ?: ? No I.U.D.?: ? No Pelvic Radiation: ?No Prior STUMP SHOOTER Therapy?: ?Other (comment) Hist Abnl Pap/Biopsy?: ?? [...] been evaluated with the assistance of the [employer] Pap Test Imaging System. Note: The Pap test is a screening test for cervical cancer with an inherent false-negative rate dependent upon several variables. For further information please contact the [facility] Laboratory. Reference: Gen INMAN. Medical Stenographer of Pap Smear Results. In: Kat BS, Jh HH, ed. The Pap Smear. [place]: Allan, 2002: 71-77. [facility] 07/01/2018 2:20 PM EDT Erinn Shanika Selena TAPIA PATHOLOGY/CYTOLOGY ORDERABLES Performing Organization Address City/[facility]/ZIP Co de Phone Number [facility] [place] [place] [address] * STUMP SHOOTER Cytology Interpretation (07/01/2018 2:20 PM EDT) [facility] Interpretation [facility] Comment:M[facility] Sander Cytology Final R eport Mold [facility]ander Cytology Comment Present [facility] Endocervical Component Present [facility] AP Specimen 07/01/2018 2:20 PM EDT 07/14/2018 10:19 AM EDT Erinn Shanika Selena TAPIA PATHOLOGY/CYTOLOGY ORDERABLES Performing Organization Address [facility] Co de Phone Number [facility] [place] [place] [address] * HPV (07/01/2018 2:20 PM EDT) HPV16 NEGATIVE NEGATIVE [facility] HPV 18 NEGATIVE NEGATIVE [facility] HPV Other HR NEGATIVE NEGATIVE [facility] HPV Interpretation See Comment [facility] Comment: NEGATIVE for high-risk HPV [...] Resulting Agency Comment Spec In Lab Erinn Shanika Selena TAPIA PATHOLOGY/CYTOLOGY ORDERABLES Performing Organization Address City/[facility]/ZIP Co de Phone Number [facility] [place] [place] [address] * Cytopathology Gynecological (07/01/2018 2:20 PM EDT) AP Specimen 07/01/2018 2:20 PM EDT 07/01/2018 8:31 PM EDT Narrative [facility] - 07/01/2018 8:31 PM EDT Specimen requisition ordered. ??Separate Pathology report to follow Resulting Agency Comment Spec In Lab Erinn Walters COMPOSING ROOM MACHINIST APPRENTICE PATHOLOGY/[place] [address] documented in this encounter Visit Diagnoses Diagnosis Screening for cervical cancer Screening for malignant neoplasm of the cervix Convulsions, unspecified convulsion type Pelvic pain in female Unspecified symptom associated with female genital organs Preventative health care Routine general medical examination at a health care facility Dyschromia Dyschromia, unspecified Mastodynia documented in this encounter Care Teams Harp Action Assembler Relationship Specialty Start Date End Date Erinn Walters, COMPOSING ROOM MACHINIST APPRENTICE [address] [place] [address] PCP - General 04/03/11 04/29/24 documented as of this encounter
--- OUTSIDE RECORDS SUMMARY | 2024-05-27 00:36 | XMS_ITS | Encounter Summary ---
Author Organization [facility] [place] [address] Care Team Providers Care Greeting Card Maker Name Role Phone Erinn Walters 1ST PRESSMAN [employer] Primary Care Provider +1- [phone] Reason for Visit * Reason Onset Date Comments Medication Refill 05/15/2018 Encounter Details Date Type Department Care Team ([facility] st Contact Info) Description 05/15/2018 Refill Primary Care at [address] [address] Erinn Walters, 1ST PRESSMAN ON [employer] PR[employer] [address] [place] [address] Social History Tobacco Use Types Packs/Day Years Used Date Smoking Tobacco: Former Cigarettes Q uit: 04/21/2003 Smokeless Tobacco: Never Sex and Gender Information Value Date Recorded Sex Assigned at Not on file Gender Identity Not on file Sexual Orientation Not on file documented as of this encounter Miscellaneous Notes * Telephone Encounter - Eri Perera CMA - 05/18/2018 8:12 AM EST This medication has never been prescribed by Erinn. Patient has also not been seen since March of 2017 and has no appts coming up. Per last office note this patient moved to [place], she will need to get refills from her new primary care there. Will refuse this request for now. Left patient a messagestating this. documented in this encounter Plan of Treatment Not on file documented as of this encounter Visit Diagnoses Not on filedocumented in this encounter Care Teams Greeting Card Maker Relationship Specialty Start Date End Date Erinn Walters, 1ST PRESSMAN [employer] [address] [place] [address] PCP - General 04/03/11 04/29/24 documented as of this encounter
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
--- OUTSIDE RECORDS SUMMARY | 2024-05-27 00:36 | XMS_ITS | Encounter Summary ---
Author Organization [facility] Address [facility] [place] [address] Care Team Providers Care Adjunct Trainer Name Role Phone Erinn Walters APRN Primary Care Provider [phone]- [phone] Reason for Referral * Consultation (Routine) - Closed Specialty Diagnoses / Procedures Referred By Melinda t Referred To Contact Diagnoses Dyschromia Erinn Walters APRN [address] [place] [address] Dermatology, [facility] [address] [place] [address] Referral ID Status Reason Start Date Expiration Date V isits Requested Visits Authorized [id number] Closed Consult, Test & Treat 07/07/2018 01/03/2019 1 1 Scheduling Instructions [facility] Dermatology [address], [address] [place] [address] Encounter Details Date Type Department Care Team ([facility] st Contact Info) Description 07/07/2018 Orders Only Primary Care at [address] [phone] Erinn Walters APRN [address] [place] [address] Dyschromia; Abdominal pain in female patient Social History Tobacco Use Types Packs/Day Years Used Date Smoking Tobacco: Former Cigarettes Q uit: 04/21/2003 Smokeless Tobacco: Never Sex and Gender Information Value Date Recorded Sex Assigned at Not on file Gender Identity Not on file Sexual Orientation Not on file documented as of this encounter Plan of Treatment Scheduled Referrals Name Type Priority Associated Diagnoses Order Schedule Referral to Dermatology Outpatient Referral Routine Dyschromia Ordered: 07/07/2018 documented as of this encounter Visit Diagnoses Diagnosis Dyschromia Dyschromia, unspecified Abdominal pain in female patient documented in this encounter Care Teams Adjunct Trainer Relationship Specialty Start Date End Date Erinn Walters, ELECTRONIC SYSTEM ENGINEER [address] [place] [address] PCP - General 04/03/11 04/29/24 documented as of this encounter
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
--- OUTSIDE RECORDS SUMMARY | 2024-05-27 00:36 | XMS_ITS | Encounter Summary ---
[place] [address] Care Team Providers Care Master Machinist Name Role Phone Selena Erinn Voss APRN Primary Care Provider [phone] Encounter Details Date Type Department Care Team (Latest Contact Info) Description 04/09/2017 11:50 AM EST Laboratory Appointment Lab at [address] [address] Convulsions, unspecified convulsion type; Preventative health care Social History Tobacco Use [...] Procedure Name Priority Date/Time Associated Diagnosis Comments LIPID PANEL (REFLEX DIRECT LDL) Routine 04/09/2017 12:00 PM EST Preventative health care COMPREHENSIVE METABOLIC PANEL Routine 04/09/2017 12:00 PM EST Convulsions, unspecified convulsion type documented in this encounter Results * Lipid Panel (04/09/2017 12:00 PM EST) Cholesterol, Total 167 <=239 mg/dL [facility] Triglyceride 132 <=199 mg/dL [facility] HDL Cholesterol 72 >=40 mg/dL [facility] LDL Cholesterol 69 <=190 mg/dL [facility] Cholesterol/HDL Ratio 2.3 ratio [facility] Lipid Interpretation See Note [facility] Comment: Lipid management should be guided by a patient? s ASCVD risk, goals and preferences. ACC/AHA Guidelines recommend high intensity statin if clinical ASCVD or LDL greater than or equal to 190 mg/dL. http://[employer].Celleration/GFL-ITU-Qwldgqtgf Adults aged 40-75 with LDL 70-189 mg/dL should have their 10 year ASCVD risk estimated with the ACC/AHA ASCVD risk pediatrics teacher http://tools.acc.org/JTHAL-Rqio-Xvqalfluc/ Statin should be discussed if risk greater [...] Lab Erinn Walters APRN CHEMISTRY ORDERABLE S [facility] [place] [address] * (ABNORMAL) Comprehensive metabolic panel (non-fasting) (04/09/2017 12:00 PM EST) Glucose 81 65 - 199 mg/dL [facility] Comment:Diabetes: >=200 mg/d L plus symptoms Blood Urea Nitrogen 9 8 - 18 mg/dL [facility] Creatinine 0.90 0.70 - 1.20 mg/dL [facility] Sodium 143 135 - 145 mmol/L [facility] Potassium 4.1 3.5 - 5.0 mmol/L [facility] Comment: Please note: ??Patients with WBC >100,000 may have falsely elevated Potassium levels. ??For accurate Potassium quantification in these patients send serum separator tube (gold top) for subsequent determinations. ??Contact the Clinical Chemistry Laboratory if there are any questions. Chloride 103 98 - 107 mmol/L [facility] Carbon Dioxide 30 22 - 31 mmol/L [facility] Anion Gap 10 5 - 15 mmol/L [facility] Calcium 9.5 8.5 - 10.5 mg/dL [facility] Protein, Total 8.1(H) 6.1 - 8.0 gm/dL [facility] Albumin 4.7 3.2 - 5.2 gm/dL [facility] Aspartate Aminotransferase 15 0 - 30 unit/L [facility] Alanine Aminotransferase 10 0 - 30 unit/L [facility] Alkaline Phosphatase 50 40 - 104 unit/L [facility] Bilirubin, Total 0.2 0.2 - 1.3 mg/dL [facility] Est Glomerular Filtration Rate >60 >=60 [facility] Comment: The reported eGFR should be multiplied by 1.2 for patients. The MDRD is not an appropriate measure of renal function for patients with body mass extremes or in patients with acute kidney failure. http://[employer].Celleration/DHnkdep http://Encapson/DHMCnkf Blood specimen (specimen) 04/09/2017 12:00 PM EST 04/09/2017 7:35 PM EST Narrative Resulting Agency Comment Spec In Lab Erinn Walters APRN CHEMISTRY ORDERABLE S [facility] [place] [address] documented in this encounter Visit Diagnoses Diagnosis Convulsions, unspecified convulsion type Preventative health care Routine general medical examination at a health care facility documented in this encounter Care Teams Master Machinist Relationship Specialty Start Date End Date Erinn Walters APRN [address] [place] [address] PCP - General 04/03/11 04/29/24 documented as of this encounter
--- OUTSIDE RECORDS SUMMARY | 2024-05-27 00:36 | XMS_ITS | Encounter Summary ---
Author Organization [facility] Address [facility] [place] [address] Care Team Providers Care Hair Worker Name Role Phone Erinn Walters APRN Primary Care Provider [phone] Reason for Referral * Consultation (Routine) - Closed Specialty Diagnoses / Procedures Referred By Melinda t Referred To Contact Obstetrics and Gynecology Diagnoses LGSIL on Pap smear of cervix Vaginal high risk HPV DNA test positive Erinn Walters APRN [address] [place] [id number] [facility] Assistant [address] [place] [phone] Referral ID Status Reason Start Date Expiration Date V isits Requested Visits Authorized [id number] Closed Specialty Service Requested 05/02/2017 05/02/2018 1 1 Encounter Details Date Type Department Care Team ([facility] st Contact Info) Description 05/02/2017 Orders Only Primary Care at [address] [address] Erinn Walters APRN [address] [place] [phone] LGSIL on Pap smear of cervix; Vaginal high risk HPV DNA test positive Social History Tobacco Use Types Packs/Day Years Used Date Smoking Tobacco: Former Cigarettes Q uit: 04/21/2003 Smokeless Tobacco: Never Sex and Gender Information Value Date Recorded Sex Assigned at Not on file Gender Identity Not on file Sexual Orientation Not on file documented as of this encounter Plan of Treatment Scheduled Referrals Name Type Priority Associated Diagnoses Orde r Schedule Referral to Ob-Interior Design Professor Outpatient Referral Routine LGSIL on Pap smear of cervix Vaginal high risk HPV DNA test positive Ordered: 05/02/2017 documented as of this encounter Visit Diagnoses Diagnosis LGSIL on Pap smear of cervix Vaginal high risk HPV DNA test positive Vaginal high risk human papillomavirus (HPV) DNA test positive documented in this encounter Care Teams Hair Worker Relationship Specialty Start Date End Date Erinn Walters, POWERTRAIN CONTROL SYSTEMS ENGINEER [address] [place] [address] PCP - General 04/03/11 04/29/24 documented as of this encounter
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
--- OUTSIDE RECORDS SUMMARY | 2024-05-27 00:36 | XMS_ITS | Encounter Summary ---
Author Organization [facility] [place] [address] Care Team Providers Care Steam Hand Name Role Phone Sheridan Arias APRN Primary Care Provider [phone]- [phone] Reason for Referral * Consultation (OSCAR) - Closed Specialty Diagnoses / Procedures Referred By Melinda t Referred To Contact Neurology Diagnoses Convulsions, unspecified convulsion type Sheridan Arias APRN [address] [place] [address] Beatris Diaz MD [address] [facility] [address] [place] [address] Referral ID Status Reason Start Date Expiration Date V isits Requested Visits Authorized [id number] Closed Consult, Test & Treat 05/27/2018 11/23/2018 6 6 Encounter Details Date Type Department Care Team ([facility] st Contact Info) Description 05/27/2018 Telephone Primary Care at [place] [address] [place] [address] Sheridan Arias APRN [address] [place] [address] Social History Tobacco Use Types Packs/Day Years Used Date Smoking Tobacco: Former Cigarettes Q uit: 04/21/2003 Smokeless Tobacco: Never Sex and Gender Information Value Date Recorded Sex Assigned at Not on file Gender Identity Not on file Sexual Orientation Not on file documented as of this encounter Miscellaneous Notes * Telephone Encounter - Bella Wick RN - 05/27/2018 1:09 PM EST ER did refill for 200 mgm dose .( I did not ask patient) Spoke with patient and advised PCP will cover rx until she is able to see neuro. Stressed that she still needs to see Neuro as soon as access is available. She will call back when refill needed * Telephone Encounter - Sheridan Arias APRN - 05/27/2018 12:55 PM EST I will fill lamictal until she sees neuro Last dose from 2011 was 200 mg daily. Please confirm. * Telephone Encounter - Bella Wick RN - 05/27/2018 9:42 AM EST Spoke with patient. Has not been seen by Neuro since 2014. Has now run out of Lamictal and Neuro will not prescribe until she is seen. She did go to [facility] on 05/21, but they would only give her a 2 week refill. Last seizure over 10 years ago. Referral entered- forwarded to PCP as NITHIN. Patient TBS next month for physical- can Lamictal be prescribed thru this office until she can re-establish with Neuro? ( I did NOT offer this to patient!!) * Telephone Encounter - Bella Wick RN - 05/27/2018 9:38 AM EST Copied from [facility] #[id number]. Topic: Patient Request - Con Referral Request >> May 27, 2018 9:12 AM Donna Mohamud wrote: Referral Request? PCP: SHERIDAN ARIAS Patient is requesting a referral to (specific office and provider): Dr. Beatris Diaz at Neurology Reason for this referral request (diagnosis/symptom): Seizures Who suggested the referral (self or provider?) Self - Previously referred by SHERIDAN ARIAS a while ago per patient Office Office Fax: N/A Does patient's insurance require an insurance referral? Unsure documented in this encounter Plan of Treatment Scheduled Referrals Name Type Priority Associated Diagnoses Orde r Schedule Referral to Neurology Outpatient Referral Routine Convulsions, unspecified convulsion type Ordered: 05/27/2018 documented as of this encounter Visit Diagnoses Diagnosis Convulsions, unspecified convulsion type documented in this encounter Care Teams Steam Hand Relationship Specialty Start Date End Date Sheridan Arias, LANDSCAPING CREW LEADER [address] [place] [address] PCP - General 04/03/11 04/29/24 documented as of this encounter
--- OUTSIDE RECORDS SUMMARY | 2024-05-27 00:37 | XMS_ITS | Encounter Summary ---
Author Organization [facility] Address [address] [place] [address] Care Team Providers Care Distribution Coordinator Name Role Phone Unknown, Provider MD Primary Care Provider Unava ilable Encounter Details Date Type Department Care Team (Late st Contact Info) Description 04/05/2019 Orders Only [facility] [address] [place], [place] [id number] Kim Cordero MD [address] [place] [address] Gen idiopathic epilepsy, not intractable, w/o stat epi ([facility]) (Primary Dx) Social History Tobacco Use Types Packs/Day Years Used Date Smoking Tobacco: Never Assessed Comments Unknown Sex and Gender Information Value Date Recorded Sex Assigned at Not on file Legal Sex Female 9:58 EDT Gender Identity Not on file Sexual Orientation Not on file documented as of this encounter Progress Notes * Kim Cordero - 04/05/2019 1740 EST Note opened in error documented in this encounter Plan of Treatment Not on file documented as of this encounter Visit Diagnoses Diagnosis Gen idiopathic epilepsy, not intractable, w/o stat epi ([facility] Primary documented in this encounter Care Teams Distribution Coordinator Relationship Specialty Start Date End Date Unknown, Provider, PCP - General 07/31/18 documented as of this encounter
--- OUTSIDE RECORDS SUMMARY | 2024-05-27 00:37 | XMS_ITS | Encounter Summary ---
[place] [address] Care Team Providers Care Field Producer Name Role Phone Erinn Walters APRN Primary Care Provider Encounter Details Date Type Department Care Team ([facility] st Contact Info) Description 07/21/2014 4:15 PM EDT Office Visit [facility] [address] [place] [address] Sanchez Barrios MD Social History Tobacco Use Types Packs/Day Years Used Date Smoking Tobacco: Never Assessed Sex and Gender Information Value Date Recorded Sex Assigned at Not on file Gender Identity Not on file Sexual Orientation Not on file documented as of this encounter Plan of Treatment Not on file documented as of this encounter Visit Diagnoses Not on filedocumented in this encounter Care Teams Field Producer Relationship Specialty Start Date End Date Erinn Walters APRN [address] [place] [address] PCP - General 04/03/11 04/29/24 documented as of this encounter
--- OUTSIDE RECORDS SUMMARY | 2024-05-27 00:37 | XMS_ITS | Referral Summary ---
Author Organization [facility] Address [address] [place] [address] Care Team Providers Care Sulfur Chloride Operator Name Role Phone Unknown, Provider MD Primary Care Provider Unava ilable Allergies Active Allergy Reactions Criticality Noted Date Comments Amoxicillin 11/24/2018 Other reaction(s): hives Zonisamide 11/24/2018 Other reaction(s): mood change Medications Docosahexanoic Acid ( DHA) 200 mg capsule 1 cap(s) orally once a day Active Lactobacillus acidophilus (PROBIOTIC) 10 billion cell capsule by mouth daily Active lamoTRIgine 300 mg ER tablet Take 1 Tab by mouth daily. 30 Tab 3 08/18/2019 Active Active Problems Problem Noted Date Diagnosed Date Abnormal brain MRI 08/18/2019 Rosacea 08/16/2019 Localization-related (focal) (partial) idiopathic epilepsy and epileptic syndromes with seizures of localized onset, not intractable, without status epilepticus ([facility]) 08/16/2019 Mastodynia 07/10/2018 Overview (08/18/2019): Last Assessment & Plan: Bilat tenderness and cobblestone texture Advised to reduce caffeine and try Evening Maud Oil supplements If R breast remains tender with texture change after menses, would US. Pt will re examine and let me know Pelvic pain in female 07/10/2018 Overview (08/18/2019): Last Assessment & Plan: No alarming findings Pt reassured but will obt USN Pt would prefer USN in [place] will let me know where to send order Benign neoplasm of other specified sites of skin 07/21/2014 Disorder of skin or subcutaneous tissue 07/22/19 15 Overview (08/18/2019): Last Assessment & Plan: Refer for mole ck Lentigo 07/21/2014 Encounter for screening for malignant neoplasm o f skin 06/01/2013 Dyschromia 08/04/2012 Overview (08/18/2019): Last Assessment & Plan: Needs annual skin check Would rather [place] region Thalassemia 05/25/2008 Anemia 05/21/2007 Social History Tobacco Use Types Packs/Day Years Used Date Smoking Tobacco: Never Assessed Alcohol Use Standard Drinks/Week Comments Yes 0 (1 standard drink = 0.6 oz pur e alcohol) AUDIT-C Answer Date Recorded Frequency of Alcohol Consumption 4 or more times a week 08/16/2019 Average Number of Drinks Not on file 020 Frequency of Binge Drinking Not on file 07/21 Interpersonal Safety Answer Date Record ed Physically Hurt Never 11/22/2019 Verbally Threaten Not on file 11/22/2019 Comments Unknown Sex and Gender Information Value Date Recorded Sex Assigned at Not on file Legal Sex Female 9:58 EDT Gender Identity Not on file Sexual Orientation Not on file Plan of Treatment Not on file Care Teams Sulfur Chloride Operator Relationship Specialty Start Date End Date Unknown, Provider, PCP - General 07/31/18
--- OUTSIDE RECORDS SUMMARY | 2024-05-27 00:37 | XMS_ITS | Encounter Summary ---
[place] [address] Care Team Providers Care Imaging Technologist Name Role Phone Erinn Walters IT CONSULTANT Primary Care Provider [phone]- [phone] Encounter Details Date Type Department Care Team ([facility] st Contact Info) Description 12/07/2012 10:50 AM EDT Office Visit [facility] [address] [place] [address] Erinn Walters, IT CONSULTANT [address] [place] [address] Social History Tobacco Use Types Packs/Day Years Used Date Smoking Tobacco: Never Assessed Sex and Gender Information Value Date Recorded Sex Assigned at Not on file Gender Identity Not on file Sexual Orientation Not on file documented as of this encounter Plan of Treatment Not on file documented as of this encounter Visit Diagnoses Not on filedocumented in this encounter Care Teams Imaging Technologist Relationship Specialty Start Date End Date Erinn Walters APRN [address] [place] [address] PCP - General 04/03/11 04/29/24 documented as of this encounter
--- OUTSIDE RECORDS SUMMARY | 2024-05-27 00:37 | XMS_ITS | Encounter Summary ---
[place] [address] Care Team Providers Care Bilingual Sales Consultant Name Role Phone Erinn Walters AIRCONDITIONING ENGINEER Primary Care Provider [phone]- [phone] Encounter Details Date Type Department Care Team ([facility] st Contact Info) Description 04/03/2011 1:45 PM EST Office Visit [facility] [address] [place] [address] Mary Szymanski, AIRCONDITIONING ENGINEER [address] [place] [address] Social History Tobacco Use Types Packs/Day Years Used Date Smoking Tobacco: Never Assessed Sex and Gender Information Value Date Recorded Sex Assigned at Not on file Gender Identity Not on file Sexual Orientation Not on file documented as of this encounter Plan of Treatment Not on file documented as of this encounter Visit Diagnoses Not on filedocumented in this encounter Care Teams Bilingual Sales Consultant Relationship Specialty Start Date End Date Erinn Walters APRN [address] [place] [address] PCP - General 04/03/11 04/29/24 documented as of this encounter
--- OUTSIDE RECORDS SUMMARY | 2024-05-27 00:37 | XMS_ITS | Encounter Summary ---
[place] [address] Care Team Providers Care Extruder Name Role Phone Erinn Walters GENETIC SCIENTIST Primary Care Provider [phone]- [phone] Encounter Details Date Type Department Care Team ([facility] st Contact Info) Description 02/04/2013 11:50 AM EDT Office Visit [facility] [address] [place] [address] Erinn Walters, GENETIC SCIENTIST [address] [place] [address] Social History Tobacco Use Types Packs/Day Years Used Date Smoking Tobacco: Never Assessed Sex and Gender Information Value Date Recorded Sex Assigned at Not on file Gender Identity Not on file Sexual Orientation Not on file documented as of this encounter Plan of Treatment Not on file documented as of this encounter Visit Diagnoses Not on filedocumented in this encounter Care Teams Extruder Relationship Specialty Start Date End Date Erinn Walters APRN [address] [place] [address] PCP - General 04/03/11 04/29/24 documented as of this encounter
--- OUTSIDE RECORDS SUMMARY | 2024-05-27 00:37 | XMS_ITS | Encounter Summary ---
Author Organization [facility] Address [address] [place] [address] Care Team Providers Care Repair Supervisor Name Role Phone Unknown, Provider Primary Care Provider Unava ilable Encounter Details Date Type Department Care Team (Late st Contact Info) Description 03/04/2023 Lab Requisition [facility] & [facility] [address] [place] [address] Mary Santos [address] [place] [address] [place] [address] Encounter for other general examination Social History Tobacco Use Types Packs/Day Years [...] Procedure Name Priority Date/Time Associated Diagnosis Comments PAP TEST Today 03/03/2023 10:20 EST Encounter for other general examination HPV DNA DETECTION WITH GENOTYPING, PCR Today 03/03/2023 10:20 EST Encounter for other general examination documented in this encounter Results * HUMAN PAPILLOMAVIRUS (HPV) DETECTION-HIGH RISK TYPES (03/03/2023 10:20 EST) HPV other High Risk types, PCR Negative Negative 03/12/2023 15:25 [facility] Comment:No E6 or E7 mRNA is detected from HPV types 16,18,31,33,35,39,45,51,52,56,58,59,66, and 68 by alterations sewer mediated amplification. Pap Test CERVIX UTERI STRUCTURE / Unknown 03/03/2023 10:20 EST 03/11/2023 17:15 EST us Mary Santos MICROBIOLOGY - GENERAL ORDERABLE S Final Result [facility] [address] [place] [address] * PAP TEST (03/03/2023 10:20 EST) Specimens A. Cervix and/or Endocervix , ThinPrep Imaging System with Manual Evaluation 03/12/2023 15:25 [facility] Specimen Adequacy Satisfactory for Evaluation - transformation zone component present 03/12/2023 15:25 [facility] General Categorization Negative for intraepithelial lesion or malignancy 03/12/2023 15:25 [facility] Descriptive Diagnosis Reactive cellular changes associated with inflammation present (includes repair). Shift in oneil present suggestive of bacterial vaginosis. 03/12/2023 15:25 [facility] Attestation By the signature below, the attending physician certifies that they have personally conducted a gross and/or microscopic examination of the described specimens and rendered or confirmed the above diagnosis. 03/12/2023 15:25 [facility] at 1525 Clinical History See below 03/12/20 15:25 [facility] HPV The result for the Human Papillomavirus (HPV) Detection-High Risk Types is Negative. No E6 or E7 mRNA is detected from HPV types 16,18,31,33,35,39 ,45,51,52,56,58,5 9,66, and 68 by alterations sewer mediated amplification.Vidhya ting was performed on specimen [id number] and was resulted on 03/12/2023 1525 EST by EMILY, LAB INSTRUMENT RESULTS IN 03/12/2023 15:25 EST [facility] Performing Lab [facility] 03/12/2023 15:25 EST [facility] Scanned Images 03/12/2023 15:25 EST [facility] Pap Test CERVIX UTERI STRUCTURE / Unknown 03/03/2023 10:20 EST 03/04/2023 11:17 EST [facility] PATHOLOGY ORDERABLES Final Resul t [facility] [address] [place] [address] documented in this encounter Visit Diagnoses Diagnosis Encounter for other general examination documented in this encounter Care Teams Repair Supervisor Relationship Specialty Start Date End Date Unknown, Provider, PCP - General 07/31/18 documented as of this encounter
--- OUTSIDE RECORDS SUMMARY | 2024-05-27 00:37 | XMS_ITS | Encounter Summary ---
Author Organization [facility] Address [address] [place] [address] Care Team Providers Care Waterproof Bag Sewer Name Role Phone Unknown, Provider MD Primary Care Provider Unava ilable Encounter Details Date Type Department Care Team (Late st Contact Info) Description 03/15/2019 Lab Requisition [facility] Pathology & Laboratory Medicine - [address] [address] Unknown, Provider, MD Encounter for other general examination Social History [...] Procedure Name Priority Date/Time Associated Diagnosis Comments SUSCEPTIBILITY Today 03/11/2019 15:20 EST Encounter for other general examination documented in this encounter Results * (ABNORMAL) SUSCEPTIBILITY (03/11/2019 15:20 EST) Organism ID Streptococcus agalactiae(A) VITEK SUSCEPTIBILITY 9 9:57 EST [facility] Comment:Organism identificat ion performed by client. Organism (organism) 03/11/2019 15:20 EST 03/15/2019 18:05 EST Narrative Organism Antibiotic Method Susceptibility Streptococcus agalactiae (Group B) Clindamycin MICRO SUSCEPTIBILITY <=0.12 ug/mL: Susceptible us Provider Unknown MICROBIOLOGY - GENERAL ORDER IGNACIO Final Result [facility] [address] [place] [address] documented in this encounter Visit Diagnoses Diagnosis Encounter for other general examination documented in this encounter Care Teams Waterproof Bag Sewer Relationship Specialty Start Date End Date Unknown, Provider, PCP - General 07/31/18 documented as of this encounter
--- OUTSIDE RECORDS SUMMARY | 2024-05-27 00:37 | XMS_ITS | Clinical Summary ---
Author Organization [facility] Address [address] [place] [address] Care Team Providers Care Inspector Semiconductor Wafer Name Role Phone Unknown, Provider MD Primary [...] localized onset, not intractable, without status epilepticus ([facility]) 08/16/2019 Mastodynia 07/10/2018 Overview (08/18/2019): Last Assessment & Plan: Bilat tenderness and cobblestone texture Advised to reduce caffeine and try Evening [place] Oil supplements If R breast remains tender [...] rather [place] region Thalassemia 05/25/2008 Anemia 05/21/2007 Medical History Medical History Date Comments Epilepsy ([facility]) childhood ons et: R frontal developmental malformation (MRI 2014 [facility] [place] Tobacco abuse Cheilitis Onychomycosis Dyschromia Iron deficiency anemia Thalassemia 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, not intractable, without status epilepticus ([facility]) 08/16/2019 Family History Medical History Relation Comments Bipolar Disorder Brother Cancer Father Relation Status Comments Brother Alive Father Alive Maternal Grandfather Maternal Grandmother Mother Alive Paternal Grandfather Alive Paternal Grandmother Social History Tobacco Use Types Packs/Day Years [...] on file Sexual Orientation Not on file Obstetrics History Plan of Treatment Health Maintenance Due Date Last Done Comments Hepatitis C Screen 1984 Hepatitis B Vaccine (1 of 3 - 19+ 3-dose series) 07/13 COVID-19 Vaccine (2023- season) 2023 Care Teams Inspector Semiconductor Wafer Relationship Specialty Start Date End Date Unknown, Provider, PCP - General 07/31/18
--- OUTSIDE RECORDS SUMMARY | 2024-05-27 00:37 | XMS_ITS | Encounter Summary ---
[place] [address] Care Team Providers Care Terminal Gauger Name Role Phone Erinn Walters WATCHGUARD Primary Care Provider [phone] Encounter Details Date Type Department Care Team ([facility] st Contact Info) Description 04/22/2011 9:30 AM EST Office Visit [facility] [address] [place] [address] Mary Szymanski, WATCHGUARD [address] [place] [address] Social History Tobacco Use Types Packs/Day Years Used Date Smoking Tobacco: Never Assessed Sex and Gender Information Value Date Recorded Sex Assigned at Not on file Gender Identity Not on file Sexual Orientation Not on file documented as of this encounter Plan of Treatment Not on file documented as of this encounter Visit Diagnoses Not on filedocumented in this encounter Care Teams Terminal Gauger Relationship Specialty Start Date End Date Erinn Walters APRN [address] [place] [address] PCP - General 04/03/11 04/29/24 documented as of this encounter
--- OUTSIDE RECORDS SUMMARY | 2024-05-27 00:37 | XMS_ITS | Encounter Summary ---
Author Organization [facility] Address [address] [place] [address] Care Team Providers Care Screen Printing Paster Name Role Phone Unknown, Provider Primary Care Provider Unava ilable Encounter Details Date Type Department Care Team (Late st Contact Info) Description 06/04/2022 Lab Requisition [facility] Pathology & Laboratory Medicine - [facility] [address] [place] [address] [address] [place] [address] Encounter for other general examination Social History [...] Date/Time Associated Diagnosis Comments PAP TEST Today 05/31/2022 1:00 EST Encounter for other general examination HPV GENOTYPES 16 AND 18/45 Today 05/31/2022 1:00 EST Encounter for other general examination HPV DNA DETECTION WITH GENOTYPING, PCR Today 05/31/2022 1:00 EST Encounter for other general examination documented in this encounter Results * HPV GENOTYPES 16 AND 18/45 (05/31/2022 1:00 EST) HPV High Risk type 16, PCR Negative Negative 06/18/2022 14:11 EST [facility] HPV18/45 RNA (HPV18/45) Negative Negative 06/18/2022 14:11 EST [facility] Papanicolaou smear specimen (specimen) CERVIX UTERI STRUCTURE / Unknown 05/31/2022 1:00 EST 06/14/2022 8:06 EST Bridgett Carlin [facility] MICROBIOLOGY - GENERAL ORDERA BLES Final Result Performing Organization Address [facility] de Phone Number [facility] [address] [place] [address] * (ABNORMAL) HUMAN PAPILLOMAVIRUS (HPV) DETECTION-HIGH RISK TYPES (05/31/2022 1:00 EST) HPV other High Risk types, PCR Positive( A) Negative 06/14/2022 17:23 EST [facility] Comment:E6 OR E7 mRNA from o ne or more types of HPV types 16,18,31,33,35,39,45,51,52,56,58,59,66, and 68 is detected by distributed energy systems consultant mediated amplification. High and intermediate risk HPV types are associated with most squamous intraepithelial lesions and cervical cancers. Papanicolaou smear specimen (specimen) CERVIX UTERI STRUCTURE / Unknown 05/31/2022 1:00 EST 06/14/2022 8:06 EST Bridgett Carlin [facility] MICROBIOLOGY - GENERAL ORDERA BLES Final Result Performing Organization Address City/[facility]/ZIP Co de Phone Number [facility] [address] [place] [address] * PAP TEST (05/31/2022 1:00 EST) Specimens A. Cervix and/or Endocervix , ThinPrep Imaging System with Manual Evaluation 06/18/2022 14:11 [facility] Specimen Adequacy Satisfactory for Evaluation - transformation zone component present 06/18/2022 14:11 [facility] General Categorization Epithelial Cell Abnormality 06/18/2022 14:11 [facility] Descriptive Diagnosis Squamous Cell Abnormality - Low grade squamous intraepithelial lesion (LSIL). 06/18/2022 14:11 [facility] Educational Comments [facility] recommends following the ASCCP's management guidelines which may be found at www.asccp.org 06/18/2022 14:11 [facility] Attestation By the signature below, the attending physician certifies that they have personally conducted a gross and/or microscopic examination of the described specimens and rendered or confirmed the above diagnosis. 06/18/2022 14:11 [facility] at 1411 Clinical History See below 06/18/19 14:11 [facility] HPV The result for the Human Papillomavirus (HPV) Detection-High Risk Types is Positive . E6 OR E7 mRNA from one or more types of HPV types 16,18,31,33,35,39 ,45,51,52,56,58,5 9,66, and 68 is detected by distributed energy systems consultant mediated amplification. High and intermediate risk HPV types are associated with most squamous intraepithelial lesions and cervical cancers. Testing was performed on specimen [id number] and was resulted on 06/14/2022 1723 EST by EMILY, LAB INSTRUMENT RESULTS IN 06/18/2022 14:11 [facility] Genotyping 16 & 18/45 The results for the HPV Genotypes 16 and 18/45 are Negative for the HPV16 RNA and Negative for the HPV18/45 RNA (HPV18/45). Testing was performed on specimen [id number] and was resulted on 06/18/2022 1411 EST by EMILY, LAB INSTRUMENT RESULTS IN 06/18/2022 14:11 [facility] Performing Lab [facility] 06/18/2022 14:11 [facility] Scanned Images 06/18/2022 14:11 [facility] Papanicolaou smear specimen (specimen) CERVIX UTERI STRUCTURE / Unknown 05/31/2022 1:00 EST 06/04/2022 9:53 EST us Bridgett Carlin [facility] PATHOLOGY ORDERABLES Final Re sult [facility] [address] [place] [address] documented in this encounter Visit Diagnoses Diagnosis Encounter for other general examination documented in this encounter Care Teams Screen Printing Paster Relationship Specialty Start Date End Date Unknown, Provider, PCP - General 07/31/18 documented as of this encounter
--- OUTSIDE RECORDS SUMMARY | 2024-05-27 00:37 | XMS_ITS | Encounter Summary ---
[place] [address] Care Team Providers Care Painter And Decorator Name Role Phone Erinn Walters APRN Primary Care Provider Encounter Details Date Type Department Care Team ([facility] st Contact Info) Description 11/10/2012 11:15 AM EDT Office Visit [facility] [address] [place] [address] Kim Montejo MD [address] [place] [address] Social History Tobacco Use Types Packs/Day Years Used Date Smoking Tobacco: Never Assessed Sex and Gender Information Value Date Recorded Sex Assigned at Not on file Gender Identity Not on file Sexual Orientation Not on file documented as of this encounter Plan of Treatment Not on file documented as of this encounter Visit Diagnoses Not on filedocumented in this encounter Care Teams Painter And Decorator Relationship Specialty Start Date End Date Erinn Walters APRN [address] [place] [address] PCP - General 04/03/11 04/29/24 documented as of this encounter
--- OUTSIDE RECORDS SUMMARY | 2024-05-27 00:37 | XMS_ITS | Encounter Summary ---
Author Organization [facility] Address [address] [place] [address] Care Team Providers Care Call Center Recruiter Name Role Phone Unknown, Provider Primary Care Provider Unava ilable Encounter Details Date Type Department Care Team (Latest Contact Info) Description 07/31/2018 13:32 EDT - 07/31/2018 23:59 EDT Hospital Encounter [facility] [address] [place] [address] Unknown, Provider, Discharge Disposition: Home or Self Care Social History Tobacco Use Types Packs/Day Years Used Date Smoking Tobacco: Never Assessed Comments Unknown Sex and Gender Information Value Date Recorded Sex Assigned at Not on file Legal Sex Female 9:58 EDT Gender Identity Not on file Sexual Orientation Not on file documented as of this encounter Discharge Disposition Disposition Code Departure Means Destination Home or Self Alf documented in this encounter Plan of Treatment Not on file documented as of this encounter Visit Diagnoses Not on filedocumented in this encounter Care Teams Call Center Recruiter Relationship Specialty Start Date End Date Unknown, Provider, PCP - General 07/31/18 documented as of this encounter
--- OUTSIDE RECORDS SUMMARY | 2024-05-27 00:37 | XMS_ITS | Encounter Summary ---
Author Organization [facility] Address [address] [place] [address] Care Team Providers Care Flight Attendant/Inflight Supervisor Name Role Phone Unknown, Provider Primary Care Provider Unava ilable Reason for Visit * Reason Comments Other Encounter Details Date Type Department Care Team (Late st Contact Info) Description 04/03/2019 Refill [facility] [address] [place], [place] [id number] Kim Cordero MD [address] [place] [address] Other Social History Tobacco Use Types Packs/Day Years Used Date Smoking Tobacco: Never Assessed Comments Unknown Sex and Gender Information Value Date Recorded Sex Assigned at Not on file Legal Sex Female 9:58 EDT Gender Identity Not on file Sexual Orientation Not on file documented as of this encounter Ordered Prescriptions Prescription Sig Dispense Quantity Refills Last Filled Start Date End Date lamoTRIgine (LAMICTAL) 150 mg tablet TAKE 1 TABLET BY MOUTH TWICE DAILY 60 Tab 1 04/06/2019 06/16/2019 documented in this encounter Miscellaneous Notes * Telephone Encounter - Donna Arias RN - 04/06/2019 0824 EST Spoke with Mariluz. She verbalized understanding of script sent and need to come in to get a serum level drawn. * Telephone Encounter - Kim Cordero - 04/05/2019 5106 EST I had actually increased her lamotrigine from 200 mg qAM to 150 mg bid in view of low serum level. Please go ahead and refill 150 mg bid. Please let her know I've also requested repeat serum lamotrigine level. * Telephone Encounter - Donna Arias RN - 04/05/2019 0910 EST Last seen 12/07, f/u for 08/17/2019. Was prescribed 200mg lamotrigine bid last visit but you lowered it to 150 mg bid during her due to her serum levels. Should she continue on 150mg bid? documented in this encounter Plan of Treatment Not on file documented as of this encounter Visit Diagnoses Not on filedocumented in this encounter Care Teams Flight Attendant/Inflight Supervisor Relationship Specialty Start Date End Date Unknown, Provider, PCP - General 07/31/18 documented as of this encounter
--- OUTSIDE RECORDS SUMMARY | 2024-05-27 00:37 | XMS_ITS | Encounter Summary ---
Author Organization 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, not intractable, without status epilepticus (HCC-CMS) (Primary Dx); Abnormal brain MRI Social History Tobacco Use Types Packs/Day Years Used Date Smoking Tobacco: Never Assessed Alcohol Use Standard Drinks/Week Comments Yes 0 (1 standard drink = 0.6 oz pur e alcohol) AUDIT-C Answer Date Recorded Frequency of Alcohol Consumption 4 or more times a week 08/16/2019 Average Number of Drinks Not on file 020 Frequency of Binge Drinking Not on file 07/21 Comments Unknown Sex and Gender Information Value Date Recorded Sex Assigned at Not on file Legal Sex Female 9:58 EDT Gender Identity Not on file Sexual Orientation Not on file documented as of this encounter Ordered Prescriptions Prescription Sig Dispense Quantity Refills Last Filled Start Date End Date lamoTRIgine 300 mg ER tablet Take 1 Tab by mouth daily. 30 Tab 3 08/18/2019 documented in this encounter Progress Notes * Kim Cordero - 08/18/2019 1330 EDT [facility] Telephone visit Verbal consent: The concept of ???Telemedicine?? has been described to the patient. Patient has been informed of the anticipated benefits and possible risks. Patient understands the information provided regarding telemedicine, has had the opportunity to ask questions about this information, and all questions have been answered to patient???s satisfaction. Patient consents for the use of telemedicine in his/her medical care and authorizes the transmission of any relevant medical information to providers and their staff involved in patient???s medical or mental health care. 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 Seizure-free since 2007 on lamotrigine 200 qAM. Medication history: Dilantin D/Cd age 12. Zonisamide started age 18 for recurrent seizures in context alcohol and marijuana. Side effect: mood change; insomnia; replaced with lamotrigine. [id number] mg caused irritability and depression and she was consistently forgetting the hs dose. MRI at 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 EEG: R frontotemporal abnormality and 1 epileptiform discharge Present history: She remains seizure and aura-free. She delivered a healthy baby boy in March. The baby is doing well. Since the she has been working part-time and presently has no medical insurance. During her her serum lamotrigine level fell from 3.1 ??g/ml (September 2018) to 1.3 ??g/ml (November 2018). I increased her lamotrigine dose from 200 mg qAM to 150 mg bid. She remains on this dose, but has been taking both tablets of 150 mg in the morning since she was consistently forgetting the PM dose. General health remains excellent. She is enjoying motherhood. Her partner is present in the evenings to help with care. Pertinent ROS included in HPI Data reviewed: Problem list, medications, allergies, family and social history, notes from last encounter, [facility], pertinent labs and neuroimaging Examination - deferred There were no vitals taken for this visit. Encounter Diagnoses Name Primary? 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 Mariluz remains seizure-free on lamotrigine IR 300 mg qAM. Yes ??? Abnormal brain MRI. R frontal developmental abnormality on MRI at [facility] Discussed today: 1. Mariluz appreciated my suggestion for referral to a [facility] financial counselor to discuss insurance options. 2. She has no PCP in [place], and was interested in getting established with a local PCP. I gave her thetelephone number of [facility] [place] for primary care and also to get connected withthe [facility] where she can obtain medications far less expensively. 3. We will D/C lamotrigine IR and replace with lamotrigine CR 300 mg/day (#30) today at [facility]. Subsequent scripts through the [facility] once she gets established. Follow-up 6 months Patient initiated phone contact with the office: No. Comment: Scheduled telemed visit Established patient? 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)- Primary Localization-related (focal) (partial) epilepsy and epileptic syndromes with simple partial seizures, without mention of intractable epilepsy Abnormal brain MRI Nonspecific (abnormal) findings on radiological and other examination of skull and head documented in this encounter Discontinued Medications Medication Sig Discontinue Reason Start Date End Da te lamoTRIgine (LAMICTAL) 150 mg tablet TAKE 1 TABLET BY MOUTH TWICE DAILY Alternate therapy 06/16/2019 08/18/2019 documented as of this encounter Care Teams Superintendent Warehouse Relationship Specialty Start Date End Date Unknown, Provider, PCP - General 07/31/18 documented as of this encounter
--- OUTSIDE RECORDS SUMMARY | 2024-05-27 00:37 | XMS_ITS | Encounter Summary ---
Author Organization [facility] Address [address] [place] [address] Care Team Providers Care Rack Loader Name Role Phone Unknown, Provider Primary Care Provider Unava ilable Encounter Details Date Type Department Care Team (Late st Contact Info) Description 10/15/2018 Historical Results Only [facility] - Main [address] [id number] Kim Cordero MD Social History Tobacco Use Types Packs/Day [...] Procedure Name Priority Date/Time Associated Diagnosis Comments LAMOTRIGINE Routine 10/15/2018 9:35 EDT documented in this encounter Results * LAMOTRIGINE (10/15/2018 9:35 EDT) Lamotrigine, S 3.1 2.5 - 15.0 mcg/mL 10/16/2018 17:59 EDT [facility] Comment: ADDITIONAL INFORMATION This test was developed and its performance characteristics determined by [facility] in a manner consistent with CLIA requirements. This test has not been cleared or approved by the U.S. Food and Drug Administration. Test Performed by: [facility] - [address] [address] 10/15/2018 9:35 EDT 10/15/2018 9:35 EDT Narrative [facility] - 10/16/2018 17:59 EDT Does PT Have a Latex Allergy? NO us Kim Cordero MD CHEMISTRY & BLOOD GAS ORDERABLE S Final Result [facility] documented in this encounter Visit Diagnoses Not on filedocumented in this encounter Care Teams Rack Loader Relationship Specialty Start Date End Date Unknown, Provider, PCP - General 07/31/18 documented as of this encounter
--- OUTSIDE RECORDS SUMMARY | 2024-05-27 00:37 | XMS_ITS | Encounter Summary ---
[place] [address] Care Team Providers Care Wing Mailer Machine Operator Name Role Phone Armin Reina DO Primary Care Provider Unacarmen ilable Encounter Details Date Type Department Care Team ([facility] st Contact Info) Description 07/10/2010 4:15 PM EDT Office Visit [facility] [address] [place] [address] Eirnn Walters, SOAKER [address] [place] [address] Social History Tobacco Use Types Packs/Day Years Used Date Smoking Tobacco: Never Assessed Sex and Gender Information Value Date Recorded Sex Assigned at Not on file Gender Identity Not on file Sexual Orientation Not on file documented as of this encounter Plan of Treatment Not on file documented as of this encounter Visit Diagnoses Not on filedocumented in this encounter Care Teams Wing Mailer Machine Operator Relationship Specialty Start Date End Date Armin Reina DO PCP - General 03/13/10 04/02/11 documented as of this encounter
--- OUTSIDE RECORDS SUMMARY | 2024-05-27 00:37 | XMS_ITS | Encounter Summary ---
Author Organization [facility] Address [address] [place] [address] Care Team Providers Care Coupler Name Role Phone Unknown, Provider MD Primary Care Provider Unava ilable Encounter Details Date Type Department Care Team (Late st Contact Info) Description 05/27/2019 Lab Requisition [facility] Pathology & Laboratory Medicine - [facility] [address] [place] [address] Unknown, Provider, Social History Tobacco Use Types Packs/Day Years [...] Procedure Name Priority Date/Time Associated Diagnosis Comments CHLAMYDIA/N. GONORRHOEAE AMPLIFIED NUCLEIC ACID Routine 05/26/2019 12:00 EST documented in this encounter Results * CHLAMYDIA/N. GONORRHOEAE AMPLIFIED RNA (05/26/2019 12:00 EST) Neisseria gonorrhoeae Result Negative Negative 05/28/2019 14:44 EST [facility] Chlamydia trachomatis Result Negative Negative 05/28/2019 14:44 EST [facility] Urine URINE / Unknown 05/26/2019 1 2:00 EST 05/27/2019 15:48 EST Narrative [facility] - 05/28/2019 14:44 EST A first catch urine specimen is acceptable for detection of Gonorrhea and Chlamydia, but might detect up to 10% fewer infections when compared with vaginal and endocervical swab samples. us Provider Unknown MICROBIOLOGY - GENERAL ORDER IGNACIO Final Result [facility] [address] [place] [address] documented in this encounter Visit Diagnoses Not on filedocumented in this encounter Care Teams Coupler Relationship Specialty Start Date End Date Unknown, Provider, PCP - General 07/31/18 documented as of this encounter
--- OUTSIDE RECORDS SUMMARY | 2024-05-27 00:37 | XMS_ITS | Encounter Summary ---
[place] [address] Care Team Providers Care Coating And Baking Operator Name Role Phone Erinn Walters EQUINE MANAGER Primary Care Provider Encounter Details Date Type Department Care Team ([facility] st Contact Info) Description 06/30/2014 4:50 PM EDT Office Visit [facility] [address] [place] [address] Erinn Walters, EQUINE MANAGER [address] [place] [address] Social History Tobacco Use Types Packs/Day Years Used Date Smoking Tobacco: Never Assessed Sex and Gender Information Value Date Recorded Sex Assigned at Not on file Gender Identity Not on file Sexual Orientation Not on file documented as of this encounter Plan of Treatment Not on file documented as of this encounter Visit Diagnoses Not on filedocumented in this encounter Care Teams Coating And Baking Operator Relationship Specialty Start Date End Date Erinn Walters APRN [address] [place] [address] PCP - General 04/03/11 04/29/24 documented as of this encounter
--- OUTSIDE RECORDS SUMMARY | 2024-05-27 00:37 | XMS_ITS | Encounter Summary ---
[place] [address] Care Team Providers Care Distillation Operator Name Role Phone Marco A Waltersy Shanika TAPIA Primary Care Provider [phone] Encounter Details Date Type Department Care Team ([facility] st Contact Info) Description 11/02/2014 Abstract [facility] [address] [place] [address] Provider, His Jacqueline MD None Social History Tobacco Use Types Packs/Day Years Used Date Smoking Tobacco: Never Assessed Sex and Gender Information Value Date Recorded Sex Assigned at Not on file Gender Identity Not on file Sexual Orientation Not on file documented as of this encounter Last Filed Vital Signs Vital Sign Reading Time Taken Comments Blood Pressure 110/70 06/30/2014 9:53 AM EDT Pulse - - Temperature - - Respiratory Rate - - Oxygen Saturation - - Inhaled Oxygen Concentration - - Weight 58.5 kg (129 lb) 06/30/2014 9:53 AM EDT Height 167 cm (5' 5.75) 06/30/2014 9:53 AM EDT Body Mass Index 20.98 06/30/2014 9:53 AM EDT documented in this encounter Plan of Treatment Not on file documented as of this encounter Procedures Procedure Name Priority Date/Time Associated Diagnosis Comments EXTERNAL PAP SMEAR RESULT PANEL Routine 06/30/2014 EXTERNAL LAB CONCORD ABSTRACT Routine 08/04/2012 EXTERNAL PAP SMEAR RESULT PANEL Routine 08/04/2012 EXTERNAL PAP SMEAR RESULT PANEL Routine 07/10/2010 documented in this encounter Results * (ABNORMAL) External Pap Smear (06/30/2014) External PAP Smear NILM (SEE RPT)(Exter nal Lab) His [place] Provider EXTERNAL LAB ORD ERABLES * (ABNORMAL) External Pap Smear (08/04/2012) External PAP Smear NILM (SEE RPT)(Exter nal Lab) His [place] Provider EXTERNAL LAB ORD ERABLES * (ABNORMAL) External Labs for [place] Medical Affairs Manager use only (08/04/2012) HPV (RESULT) Negative(E xternal Lab) His [place] Provider POINT OF CARE TE ST ORDERABLES * (ABNORMAL) External Pap Smear (07/10/2010) External PAP Smear NILM (SEE RPT)(Exter nal Lab) His [place] Provider EXTERNAL LAB ORD ERABLES documented in this encounter Visit Diagnoses Not on filedocumented in this encounter Care Teams Distillation Operator Relationship Specialty Start Date End Date Erinn Walters, COMMERCIAL ESCROW ASSISTANT [address] [place] [address] PCP - General 04/03/11 04/29/24 documented as of this encounter
--- OUTSIDE RECORDS SUMMARY | 2024-05-27 00:37 | XMS_ITS | Encounter Summary ---
Author Organization [facility] Address [address] [place] [address] Care Team Providers Care Trimmer And Borer Machine Operator Name Role Phone Unknown, Provider Primary Care Provider Unava ilable Encounter Details Date Type Department Care Team (Late st Contact Info) Description 12/03/2018 Historical Results Only [facility] - Main [address] [id number] Kim Cordero MD Social History Tobacco Use [...] Priority Date/Time Associated Diagnosis Comments LAMOTRIGINE Routine 12/03/2018 9:17 EDT documented in this encounter Results * (ABNORMAL) LAMOTRIGINE (12/03/2018 9:17 EDT) Lamotrigine, S 1.3(A) 2.5 - 15.0 mcg/mL 12/04/2018 15:51 EDT [facility] Comment: ADDITIONAL INFORMATION This test was developed and its performance characteristics determined by [facility] in a manner consistent with CLIA requirements. This test has not been cleared or approved by the U.S. Food and Drug Administration. Test Performed by: [facility] - [address] [address] 12/03/2018 9:17 EDT 12/03/2018 9:17 EDT Narrative [facility] - 12/04/2018 15:51 EDT Does PT Have a Latex Allergy? NO us Kim Cordero MD CHEMISTRY & BLOOD GAS ORDERABLE S Final Result [facility] documented in this encounter Visit Diagnoses Not on filedocumented in this encounter Care Teams Trimmer And Borer Machine Operator Relationship Specialty Start Date End Date Unknown, Provider, PCP - General 07/31/18 documented as of this encounter
--- OUTSIDE RECORDS SUMMARY | 2024-05-27 00:37 | XMS_ITS | Encounter Summary ---
[place] [address] Care Team Providers Care Field Interviewer Name Role Phone Erinn Walters APRN Primary Care Provider Encounter Details Date Type Department Care Team ([facility] st Contact Info) Description 03/24/2013 10:30 AM EST Office Visit [facility] [address] [place] [address] Social History Tobacco Use Types Packs/Day Years Used Date Smoking Tobacco: Never Assessed Sex and Gender Information Value Date Recorded Sex Assigned at Not on file Gender Identity Not on file Sexual Orientation Not on file documented as of this encounter Plan of Treatment Not on file documented as of this encounter Visit Diagnoses Not on filedocumented in this encounter Care Teams Field Interviewer Relationship Specialty Start Date End Date Erinn Walters APRN [address] [place] [address] PCP - General 04/03/11 04/29/24 documented as of this encounter
--- OUTSIDE RECORDS SUMMARY | 2024-05-27 00:37 | XMS_ITS | Encounter Summary ---
[place] [address] Care Team Providers Care Spindle Plumber Name Role Phone Erinn Walters APRN Primary Care Provider [phone] Encounter Details Date Type Department Care Team ([facility] st Contact Info) Description 03/25/2013 9:00 AM EST Office Visit [facility] [address] [place] [address] Social History Tobacco Use Types Packs/Day Years Used Date Smoking Tobacco: Never Assessed Sex and Gender Information Value Date Recorded Sex Assigned at Not on file Gender Identity Not on file Sexual Orientation Not on file documented as of this encounter Plan of Treatment Not on file documented as of this encounter Visit Diagnoses Not on filedocumented in this encounter Care Teams Spindle Plumber Relationship Specialty Start Date End Date Erinn Walters APRN [address] [place] [address] PCP - General 04/03/11 04/29/24 documented as of this encounter
--- OUTSIDE RECORDS SUMMARY | 2024-05-27 00:37 | XMS_ITS | Encounter Summary ---
[place] [address] Care Team Providers Care Chicken Sexer Name Role Phone Erinn Walters APRN Primary Care Provider [phone] Encounter Details Date Type Department Care Team ([facility] st Contact Info) Description 03/22/2013 1:00 PM EST Office Visit [facility] [address] [place] [address] Hemant Red MD [address] [place] [address] Social History Tobacco Use Types Packs/Day Years Used Date Smoking Tobacco: Never Assessed Sex and Gender Information Value Date Recorded Sex Assigned at Not on file Gender Identity Not on file Sexual Orientation Not on file documented as of this encounter Plan of Treatment Not on file documented as of this encounter Visit Diagnoses Not on filedocumented in this encounter Care Teams Chicken Sexer Relationship Specialty Start Date End Date Erinn Walters APRN [address] [place] [address] PCP - General 04/03/11 04/29/24 documented as of this encounter
--- OUTSIDE RECORDS SUMMARY | 2024-05-27 00:37 | XMS_ITS | Encounter Summary ---
Author Organization [facility] Address [address] [place] [address] Care Team Providers Care Saute Chef Name Role Phone Unknown, Provider Primary Care Provider Unava ilable Encounter Details Date Type Department Care Team (Late st Contact Info) Description 08/16/2019 Abstract [facility] [address] [place] [address] Jagruti David LPN Social History Tobacco Use Types Packs/Day Years [...] Diagnoses Not on filedocumented in this encounter Historical Medications * This list may reflect changes made after this encounter. Lactobacillus acidophilus (PROBIOTIC) 10 billion cell capsule by mouth daily Docosahexanoic Acid ( DHA) 200 mg capsule 1 cap(s) orally once a day added in this encounter Care Teams Saute Chef Relationship Specialty Start Date End Date Unknown, Provider, PCP - General 07/31/18 documented as of this encounter
--- OUTSIDE RECORDS SUMMARY | 2024-05-27 00:37 | XMS_ITS | Encounter Summary ---
Author Organization [facility] [place] [address] Care Team Providers Care Retort Operator Name Role Phone Marco A Ariasy Shanika TAPIA Primary Care Provider [phone] Reason for Referral * Consultation (Routine) - Closed Specialty Diagnoses / Procedures Referred By Melinda gastelum Referred To Contact Plastic Surgery Diagnoses Hypertrophic scar Sanchez Barrios MD [address] [place] [address] Nadeem Villegas MD [address] [place] [address] Referral ID Status Reason Start Date Expiration Date Visits Requested Visits Authorized [id number] Closed Consult, Test & Treat HIM Information sent 02/23/2015 08/22/2015 1 1 Reason for Visit * Reason Comments Other Encounter Details Date Type Department Care Team ([facility] Contact Info) Description 02/09/2015 Telephone Dermatology at [address] [address] Sanchez Barrios MD Social History Tobacco Use Types Packs/Day Years Used Date Smoking Tobacco: Never Assessed Sex and Gender Information Value Date Recorded Sex Assigned at Not on file Gender Identity Not on file Sexual Orientation Not on file documented as of this encounter Miscellaneous Notes * Telephone Encounter - Faby Stephenson CMA - 02/23/2015 5:08 PM EST Referral sent to Plastics Faby Stephenson CMA * Telephone Encounter - Faby Stephenson CMA - 02/23/2015 5:05 PM EST Yes, we can refer her to plastic surgery with Dr Villegas for that excision due to the risk of hypertrophic scarring. Remind her she will need to check with them if the procedure and the visit will be covered, as they are a different organization. * Telephone Encounter - Sanchez Barrios MD - 02/21/2015 4:49 PM EST Yes, we can refer her to plastic surgery with Dr Villegas for that excision due to the risk of hypertrophic scarring. Remind her she will need to check with them if the procedure and the visit will be covered, as they are a different organization. * Telephone Encounter - Faby Stephenson CMA - 02/09/2015 9:39 AM EDT LV 07/21/14 Calling back Pt Pt states she would like to have mole removed from chest. Pt also states due to the location she was advised by Sanchez Barrios MD she may be able to go to plastics for the PRO. Advised Pt Sanchez Barrios MD is out of the office until next week and he will review this note I will call her back after speaking with the Dr. Pt showed understanding and can be reached at the # listed below. Forwarded to MD Faby Sampson CMA * Telephone Encounter - Faby Stephenson CMA - 02/09/2015 9:37 AM EDT ----- Message from Bhavya Madrigal sent at 02/08/2015 10:25 AM EDT ----- Contact: SELF PGF Appointment needed PCP: SHERIDAN ARIAS APRN (General) Caller name (if other than patient): self Relationship to the patient: Best number to be reached at: [phone] Reason for request: pt would like to have a mole removed. She says that [facility] told her he would do itbut she had wanted to think about it prior to making the decision. She has decided to have it done and would like to see him as soon as she can. Desired time frame: miguel angel documented in this encounter Plan of Treatment Scheduled Referrals Name Type Priority Associated Diagnoses Orde r Schedule Referral to Plastic Surgery Outpatient Referral Routine Hypertrophic scar Ordered: 02/23/2015 documented as of this encounter Visit Diagnoses Diagnosis Hypertrophic scar Keloid scar documented in this encounter Care Teams Retort Operator Relationship Specialty Start Date End Date Sheridan Arias, RAPID EXTRACTOR OPERATOR [address] [place] [address] PCP - General 04/03/11 04/29/24 documented as of this encounter
--- OUTSIDE RECORDS SUMMARY | 2024-05-27 00:37 | XMS_ITS | Encounter Summary ---
Author [place] [address] Care Team Providers Care Mechanical Shovel Operator Name Role Phone Erinn Walters GAS INSPECTOR Primary Care Provider Encounter Details Date Type Department Care Team ([facility] st Contact Info) Description 08/04/2012 4:50 PM EDT Office Visit [facility] [address] [place] [address] Erinn Walters, GAS INSPECTOR [address] [place] [address] Social History Tobacco Use Types Packs/Day Years Used Date Smoking Tobacco: Never Assessed Sex and Gender Information Value Date Recorded Sex Assigned at Not on file Gender Identity Not on file Sexual Orientation Not on file documented as of this encounter Plan of Treatment Not on file documented as of this encounter Visit Diagnoses Not on filedocumented in this encounter Care Teams Mechanical Shovel Operator Relationship Specialty Start Date End Date Erinn Walters APRN [address] [place] [address] PCP - General 04/03/11 04/29/24 documented as of this encounter
--- OUTSIDE RECORDS SUMMARY | 2024-05-27 00:37 | XMS_ITS | Encounter Summary ---
[place] [address] Care Team Providers Care Wildlife Policy Professional Name Role Phone Erinn Walters APRN Primary Care Provider Encounter Details Date Type Department Care Team ([facility] st Contact Info) Description 06/01/2013 9:30 AM EST Office Visit [facility] [address] [place] [address] Sanchez Barrios MD Social History Tobacco Use [...] on filedocumented in this encounter Care Teams Wildlife Policy Professional Relationship Specialty Start Date End Date Erinn Walters APRN [address] [place] [address] PCP - General 04/03/11 04/29/24 documented as of this encounter
--- OUTSIDE RECORDS SUMMARY | 2024-05-27 00:37 | XMS_ITS | Encounter Summary ---
Author Organization [facility] Address [address] [place] [address] Care Team Providers Care Family Educator Name Role Phone Unknown, Provider Primary Care Provider Unava ilable Reason for Visit * Reason Comments Other Encounter Details Date Type Department Care Team (Late st Contact Info) Description 06/15/2019 Refill [facility] [address] [place], [place] [address] Kim Cordero MD [address] [place] [address] Other Social History Tobacco Use Types [...] TABLET BY MOUTH TWICE DAILY 60 Tab 2 06/16/2019 08/18/2019 documented in this encounter Miscellaneous Notes * Telephone Encounter - Donna Arias RN - 06/16/2019 0854 EST Refill Request: lamotrigine 150 mg bid Last OV: 12/08/2019 Next OV: 08/16/2018 Med/dosage reference date: 04/05/2019 - same Refill per protocol: Escript sent to pharmacy documented in this encounter Plan of Treatment Not on file documented as of this encounter Visit Diagnoses Not on filedocumented in this encounter Discontinued Medications Medication Sig Discontinue Reason Start Date End Da te lamoTRIgine (LAMICTAL) 150 mg tablet TAKE 1 TABLET BY MOUTH TWICE DAILY 04/06/2019 06/16/2019 documented as of this encounter Care Teams Family Educator Relationship Specialty Start Date End Date Unknown, Provider, PCP - General 07/31/18 documented as of this encounter
--- OUTSIDE RECORDS SUMMARY | 2024-05-27 00:37 | XMS_ITS | Encounter Summary ---
Author Organization [facility] [place] [address] Care Team Providers Care Home Care Associate Name Role Phone Selena Erinn Shanika TAPIA Primary Care Provider Encounter Details Date Type Department Care Team (Latest Contact Info) Description 06/01/2013 7:32 PM EST - 06/01/2013 11:59 PM EST Hospital [place] [address] Sanchez Barrios MD Discharge Disposition: Home Social History Tobacco Use Types Packs/Day Years Used Date Smoking Tobacco: Never Assessed Sex and Gender Information Value Date Recorded Sex Assigned at Not on file Gender Identity Not on file Sexual Orientation Not on file documented as of this encounter Medications at Time of Discharge Medication Sig Dispensed Refills Start Date End Date lamoTRIgine (LAMICTAL) 200 mg Tablet Take 200 mg by mouth daily. Per Elena Berman 04/22/2011 06/10/2018 documented as of this encounter Plan of Treatment Not on file documented as of this encounter Procedures Procedure Name Priority Date/Time Associated Diagnosis Comments SURGICAL PATHOLOGY REPORT Routine 06/01/2013 9:30 AM EST documented in this encounter Results * Surgical Pathology Report (06/01/2013 9:30 AM EST) Final Diagnosis ? [facility] ? Provider: ?? SANCHEZ BARRIOS ?Pt. Name: ?? LOYDA RAMIREZ ? Acc #: ?[id number] ? Pt. ? Col Date: ?? 06/01/2013 ? /Sex: ?1985,(27 years),Female ? Rec Date: ?? 06/01/2013 ? LOC: ?HCC ? SURGICAL PATHOLOGY ? ---Pathologic Diagnosis--- ? Skin, right medial scapula, shave biopsy: ?Lentiginous compound dysplastic nevus, irritated; the margins are ? narrowly clear in these sections. See comment. ? CR-0 ? 06/02/13 ? BJM ? 06/02/13 Verified by: ? Delmar PEREZ, Fernie Davis ? Dermatopathologist ? (Electronic Signature) ? The attending pathologist whose signature appears on this report has ? reviewed all diagnostic slides and has edited the gross and/or ? microscopic portion of the report in rendering the final pathologic ? diagnosis. ? ---Comment--- ? There are also some features of a hypermelanotic nevus. Multiple deeper ? levels have been examined. ? ---Gross Description--- ? A - Labeled/Fixative: Patient's name, formalin. ? Quantity/Size: Single, 0.7 x 0.7 cm shave. ? Tissue Description: Morales skin with a centrally located 0.4 x 0.4 cm dark ? brown macule. ? Sections/Processing: Inked, trisected. (T1) ??cjl ? ---Clinical Information--- ? Specimen Submitted: ? A - (R) medial scapula, shave ? Clinical History: ? Two toned dark macule ? Clinical Diagnosis: ? Rule out two toned nevus 06/02/2013 3:27 PM EST [facility] SPECIMEN FROM SKIN / Unknown 06/01/2013 9:30 AM EST 06/01/2013 9:30 AM EST Sanchez Barrios MD PATHOLOGY/CYTOLOGY O RDERABLES [facility] [place] [id number] documented in this encounter Visit Diagnoses Not on filedocumented in this encounter Care Teams Home Care Associate Relationship Specialty Start Date End Date Erinn Walters, CERTIFIED CREDIT COUNSELOR [address] [place] [address] PCP - General 04/03/11 04/29/24 documented as of this encounter
--- OUTSIDE RECORDS SUMMARY | 2024-05-27 00:37 | XMS_ITS | Encounter Summary ---
Author Organization [facility] Address [address] [place] [address] Care Team Providers Care Renovation Plant Supervisor Name Role Phone Unknown, Provider Primary Care Provider Unava ilable Encounter Details Date Type Department Care Team (Late st Contact Info) Description 07/12/2022 Lab Requisition [facility] Pathology & Laboratory Medicine - [facility] [address] [place] [address] aMry Santos [address] [place] [address] [place] [address] Encounter for other general examination [...] Priority Date/Time Associated Diagnosis Comments SURGICAL PATHOLOGY Today 07/12/2022 9: 50 EDT Encounter for other general examination documented in this encounter Results * SURGICAL PATHOLOGY (07/12/2022 9:50 EDT) Note to Patient The following pathology results have been interpreted by your pathologist and may be available to you before your health provider has had the opportunity to review them. Please allow time for your provider to receive these results and explore management options, if applicable. 07/19/2022 8:27 [facility] Final Diagnosis A. ENDOCERVIX, CURETTAGE: - Scant specimen, insufficient for evaluation. B. CERVIX, 6 O'CLOCK, BIOPSY: - High-grade squamous intraepithelial lesion (ZAHRAA 2). See comment. 07/19/2022 8:27 [facility] Diagnosis Comment Immunoperoxidase stains were performed on this case to further characterize the lesion. ANTIBODY(CLONE)(BL OCK):RESULT P16 (E6H4TM, [place]) (B1): Positive block-like staining. Ki67 (MIB-1) (K2, Leica) (B1): Increased staining in dysplastic cells. NOTE: One or more of the reagents used in immunoperoxidase testing in this case may not have been cleared or approved by the U.S. Food and Drug Administration (FDA). The FDA has determined that such clearance or approval is not necessary. These tests are used for clinical purposes. They should not be regarded as investigational or for research. These reagents' performance characteristics have been determined by [facility] and/or by the referring laboratory. The positive and negative controls worked appropriately. If immunoperoxidase staining has been performed on alcohol fixed cytology specimens, which has not been fully validated, the assays should be interpreted with caution and correlated with clinical data. This laboratory is certified under the Clinical Laboratory Improvement Amendments of 1988 (CLIA-88) as qualified to perform high complexity clinical laboratory testing. 07/19/2022 8:27 [facility] Attestation There was significant resident/fellow involvement in the diagnostic evaluation of this case. By the signature below, the attending physician certifies that they have personally conducted a gross and/or microscopic examination of the described specimens and rendered or confirmed the above diagnosis. 07/19/2022 8:27 [facility] at 0827 Clinical History LSIL; +HR HPV 07/19/2022 8:27 [facility] Gross Description A. Received in formalin labelled with proper patient identification (initials R, S) and ECC are scant fragments of stephens-white tissue (0.2 x 0.2 x 0.1 cm in aggregate). The specimen is entirely submitted in A1. Please note: the tissue may not survive processing. B. Received in formalin labelled with proper patient identification (initials R, S) and cervical Bx at 6 o'clock is a single fragment of stephens-white soft tissue (0.8 x 0.4 x 0.3 cm). The specimen is entirely submitted in B1. MANNY PATRICK(ASCP) 07/15/2022 7:48 07/19/2022 8:27 EDT [facility] Resident/Tobin w: Justin Davies MD 07/19/2022 8:27 EDT [facility] Performing Lab [facility] 8:27 EDT [facility] Scanned Images 07/19/2022 8:27 EDT [facility] Tissue ENTIRE WALL OF CERVIX / Unknown 07/12/2022 9:50 EDT 07/12/2022 18:22 EDT Tissue specimen (specimen) CERVIX UTERI STRUCTURE / Unknown 07/12/2022 9:50 EDT 07/12/2022 18:22 EDT Mary Santos PATHOLOGY ORDERABLES Final Resul t Performing Organization Address City/State/[facility] Co de Phone Number [facility] [address] [place] [address] documented in this encounter Visit Diagnoses Diagnosis Encounter for other general examination documented in this encounter Care Teams Renovation Plant Supervisor Relationship Specialty Start Date End Date Unknown, Provider, PCP - General 07/31/18 documented as of this encounter
--- OUTSIDE RECORDS SUMMARY | 2024-05-27 00:37 | XMS_ITS | Encounter Summary ---
Author Organization [facility] Address [address] [place] [address] Care Team Providers Care Fast Food Cashier Name Role Phone Unknown, Provider Primary Care Provider Unava ilable Encounter Details Date Type Department Care Team (Late st Contact Info) Description 07/31/2018 Historical Results Only [facility] Radiology Results [address] [place] [address] Erinn Walters, PRIMER BOXER [address] [place] [address] Social History Tobacco Use Types Packs/Day Years [...] Procedure Name Priority Date/Time Associated Diagnosis Comments US BREAST LIMITED UNILATERAL 07/31/2018 12:00 EDT MA BREAST DIAGNOSTIC KANIKA BILATERAL 07/31/2018 12:00 EDT documented in this encounter Results * US BREAST LIMITED UNILATERAL (07/31/2018 12:00 EDT) Anatomical Region Laterality Modality Breast Other 07/31/2018 12:0 0 EDT Narrative 07/31/2018 12:01 EDT ? EXAM: ULTRASOUND/UNILATERAL BREAST LIMITE EX. D/ (1046) ? CLINICAL INFORMATION: ? MASTODYNIA - BILAT TENDERNESS AND COBBLESTONE ? TEXTURE N64.4 ? INDICATION: MASTODYNIA - BILAT TENDERNESS AND COBBLESTONE, TEXTURE ? N64.4 BILATERAL TENDERNESS,MASTODYNIA, COBBLESTONE TEXTURE ? COMPARISON: None. Baseline study. ? TECHNIQUE: Full field digital whole breast 2D (C-view) and 3D CC and ? MLO views of both breasts were obtained. ??3-D: Compression MLO view ? of the right breast was also obtained. CAD technology was utilized. ? FINDINGS: ? LEFT BREAST: The breast tissue is of heterogeneous density, which may ? obscure small masses. No dominant mass or suspicious ? microcalcification is seen. ? RIGHT BREAST: The breast tissue is of heterogeneous density, which ? may obscure small masses. There is a reported palpable lump at 11-12 ? o'clock where there are 2 smoothly marginated nodules correspond to ? simple cysts on subsequent ultrasound. No architectural distortion or ? suspicious microcalcification is identified. ? RIGHT BREAST ULTRASOUND: Sonographic examination of the lateral half ? of the right breast from 6-12 o'clock was performed. ? The breast tissue is dense. There are numerous cysts scattered ? throughout the lateral aspect of the right breast. This includes the ? area of palpable concern in the 11 to 12 o'clock position as well as ? in the lateral breast corresponding to a smoothly marginated nodule ? seen on the corresponding mammogram. No solid mass or abnormal ? posterior shadowing is identified. ? The decision to biopsy any clinically suspicious palpable abnormality ? should not be altered by the results of this examination. ? The findings were communicated to the patient by the financial reserve clerk ? shortly following the examination. ? FINAL ASSESSMENT: ??DIAGNOSTIC RIGHT BREAST MAMMOGRAM/ULTRASOUND - ? BI-RADS Category 2 - Benign findings. ? FINAL ASSESSMENT: ??DIAGNOSTIC LEFT BREAST MAMMOGRAM - BI-RADS ? Category 1 - Negative. ? These results will be communicated to your patient via a lay letter ? PAGE 1 ? Signed Report ? (CONTINUED) ? from Radiology. ??If any additional imaging is needed we will contact ? your patient directly. ? REPORT SIGNED IN OTHER VENDOR SYSTEM 07/31/2018 ?Reported By: Anthony Dodd MD ? CC: ? Transcribed Date/Time: 07/31/2018 (1201) ? Dictaphone Mechanic: [email or web address] ? Printed Date/Time: 10/12/2018 (0142) ? PAGE 2 ? Signed Report ? Procedure Note Anthony Dodd MD - 02/25/2019 EXAM: ULTRASOUND/UNILATERAL BREAST LIMITE EX. D/ (1046) CLINICAL INFORMATION: MASTODYNIA - BILAT TENDERNESS AND COBBLESTONE TEXTURE N64.4 INDICATION: MASTODYNIA - BILAT TENDERNESS AND COBBLESTONE, TEXTURE N64.4 BILATERAL TENDERNESS,MASTODYNIA, COBBLESTONE TEXTURE COMPARISON: None. Baseline study. TECHNIQUE: Full field digital whole breast 2D (C-view) and 3D CCand MLO views of both breasts were obtained. 3-D: Compression MLO view of the right breast was also obtained. CAD technology was utilized. FINDINGS: LEFT BREAST: The breast tissue is of heterogeneous density, whichmay obscure small masses. No dominant mass or suspicious microcalcification is seen. RIGHT BREAST: The breast tissue is of heterogeneous density, which may obscure small masses. There is a reported palpable lump at11-12 o'clock where there are 2 smoothly marginated nodules correspond to simple cysts on subsequent ultrasound. No architectural distortionor suspicious microcalcification is identified. RIGHT BREAST ULTRASOUND: Sonographic examination of the lateralhalf of the right breast from 6-12 o'clock was performed. The breast tissue is dense. There are numerous cysts scattered throughout the lateral aspect of the right breast. This includesthe area of palpable concern in the 11 to 12 o'clock position as wellas in the lateral breast corresponding to a smoothly marginated nodule seen on the corresponding mammogram. No solid mass or abnormal posterior shadowing is identified. The decision to biopsy any clinically suspicious palpableabnormality should not be altered by the results of this examination. The findings were communicated to the patient by theultrasonographer shortly following the examination. FINAL ASSESSMENT: DIAGNOSTIC RIGHT BREAST MAMMOGRAM/ULTRASOUND - BI-RADS Category 2 - Benign findings. FINAL ASSESSMENT: DIAGNOSTIC LEFT BREAST MAMMOGRAM - BI-RADS Category 1 - Negative. These results will be communicated to your patient via a lay letter PAGE 1 Signed Report (CONTINUED) from Radiology. If any additional imaging is needed we willcontact your patient directly. REPORT SIGNED IN OTHER VENDOR SYSTEM 07/31/2018 Reported By: Anthony Dodd MD CC: Transcribed Date/Time: 07/31/2018 (1205) Dictaphone Mechanic: Printed Date/Time: 10/12/2018 (0147) PAGE 2 Signed Report us Erinn Walters APRN IMG US ORDERABLES Final Res ult * MA BREAST DIAGNOSTIC KANIKA BILATERAL (07/31/2018 12:00 EDT) Anatomical Region Laterality Modality Breast Bilateral Other 07/31/2018 12:0 0 EDT Narrative 07/31/2018 12:01 EDT ? EXAM: MAMMOGRAM/MAMMO BILATERAL DX W KANIKA EX. D/ (1031) ? CLINICAL INFORMATION: ? MASTODYNIA - BILAT TENDERNESS AND COBBLESTONE ? TEXTURE N64.4 ? INDICATION: MASTODYNIA - BILAT TENDERNESS AND COBBLESTONE, TEXTURE ? N64.4 BILATERAL TENDERNESS,MASTODYNIA, COBBLESTONE TEXTURE ? COMPARISON: None. Baseline study. ? TECHNIQUE: Full field digital whole breast 2D (C-view) and 3D CC and ? MLO views of both breasts were obtained. ??3-D: Compression MLO view ? of the right breast was also obtained. CAD technology was utilized. ? FINDINGS: ? LEFT BREAST: The breast tissue is of heterogeneous density, which may ? obscure small masses. No dominant mass or suspicious ? microcalcification is seen. ? RIGHT BREAST: The breast tissue is of heterogeneous density, which ? may obscure small masses. There is a reported palpable lump at 11-12 ? o'clock where there are 2 smoothly marginated nodules correspond to ? simple cysts on subsequent ultrasound. No architectural distortion or ? suspicious microcalcification is identified. ? RIGHT BREAST ULTRASOUND: Sonographic examination of the lateral half ? of the right breast from 6-12 o'clock was performed. ? The breast tissue is dense. There are numerous cysts scattered ? throughout the lateral aspect of the right breast. This includes the ? area of palpable concern in the 11 to 12 o'clock position as well as ? in the lateral breast corresponding to a smoothly marginated nodule ? seen on the corresponding mammogram. No solid mass or abnormal ? posterior shadowing is identified. ? The decision to biopsy any clinically suspicious palpable abnormality ? should not be altered by the results of this examination. ? The findings were communicated to the patient by the financial reserve clerk ? shortly following the examination. ? FINAL ASSESSMENT: ??DIAGNOSTIC RIGHT BREAST MAMMOGRAM/ULTRASOUND - ? BI-RADS Category 2 - Benign findings. ? FINAL ASSESSMENT: ??DIAGNOSTIC LEFT BREAST MAMMOGRAM - BI-RADS ? Category 1 - Negative. ? These results will be communicated to your patient via a lay letter ? PAGE 1 ? Signed Report ? (CONTINUED) ? from Radiology. ??If any additional imaging is needed we will contact ? your patient directly. ? REPORT SIGNED IN OTHER VENDOR SYSTEM 07/31/2018 ?Reported By: Anthony Dodd MD ? CC: ? Transcribed Date/Time: 07/31/2018 (1201) ? Dictaphone Mechanic: ? Printed Date/Time: 10/12/2018 (0142) ? PAGE 2 ? Signed Report ? Procedure Note Anthony Dodd MD - 02/25/2019 EXAM: MAMMOGRAM/MAMMO BILATERAL DX W KANIKA EX. D/ (1031) CLINICAL INFORMATION: MASTODYNIA - BILAT TENDERNESS AND COBBLESTONE TEXTURE N64.4 INDICATION: MASTODYNIA - BILAT TENDERNESS AND COBBLESTONE, TEXTURE N64.4 BILATERAL TENDERNESS,MASTODYNIA, COBBLESTONE TEXTURE COMPARISON: None. Baseline study. TECHNIQUE: Full field digital whole breast 2D (C-view) and 3D CCand MLO views of both breasts were obtained. 3-D: Compression MLO view of the right breast was also obtained. CAD technology was utilized. FINDINGS: LEFT BREAST: The breast tissue is of heterogeneous density, whichmay obscure small masses. No dominant mass or suspicious microcalcification is seen. RIGHT BREAST: The breast tissue is of heterogeneous density, which may obscure small masses. There is a reported palpable lump at11-12 o'clock where there are 2 smoothly marginated nodules correspond to simple cysts on subsequent ultrasound. No architectural distortionor suspicious microcalcification is identified. RIGHT BREAST ULTRASOUND: Sonographic examination of the lateralhalf of the right breast from 6-12 o'clock was performed. The breast tissue is dense. There are numerous cysts scattered throughout the lateral aspect of the right breast. This includesthe area of palpable concern in the 11 to 12 o'clock position as wellas in the lateral breast corresponding to a smoothly marginated nodule seen on the corresponding mammogram. No solid mass or abnormal posterior shadowing is identified. The decision to biopsy any clinically suspicious palpableabnormality should not be altered by the results of this examination. The findings were communicated to the patient by theultrasonographer shortly following the examination. FINAL ASSESSMENT: DIAGNOSTIC RIGHT BREAST MAMMOGRAM/ULTRASOUND - BI-RADS Category 2 - Benign findings. FINAL ASSESSMENT: DIAGNOSTIC LEFT BREAST MAMMOGRAM - BI-RADS Category 1 - Negative. These results will be communicated to your patient via a lay letter PAGE 1 Signed Report (CONTINUED) from Radiology. If any additional imaging is needed we willcontact your patient directly. REPORT SIGNED IN OTHER VENDOR SYSTEM 07/31/2018 Reported By: Anthony Dodd MD CC: Transcribed Date/Time: 07/31/2018 (1201) Dictaphone Mechanic: Printed Date/Time: 10/12/2018 (0142) PAGE 2 Signed Report Erinn Walters APRN IMG MAMMOGRAPHY ORDERABLES Final Result documented in this encounter Visit Diagnoses Not on filedocumented in this encounter Care Teams Fast Food Cashier Relationship Specialty Start Date End Date Unknown, Provider, PCP - General 07/31/18 documented as of this encounter
--- OUTSIDE RECORDS SUMMARY | 2024-05-27 00:37 | XMS_ITS | Encounter Summary ---
Author Organization [facility] Address [address] [place] [address] Care Team Providers Care Cream Buyer Name Role Phone Unknown, Provider Primary Care Provider Unava ilable Encounter Details Date Type Department Care Team (Late st Contact Info) Description 08/30/2022 Lab Requisition [facility] Pathology & Laboratory Medicine - [facility] [address] [place] [address] Mary Santos [address] [place] [address] [place] [id number] Encounter for other general examination Social History [...] Date/Time Associated Diagnosis Comments SURGICAL PATHOLOGY Today 08/29/2022 14 :15 EDT Encounter for other general examination documented in this encounter Results * SURGICAL PATHOLOGY (08/29/2022 14:15 EDT) Note to Patient The following pathology results have been interpreted by your pathologist and may be available to you before your health provider has had the opportunity to review them. Please allow time for your provider to receive these results and explore management options, if applicable. 09/03/2022 15:18 [facility] Final Diagnosis A. ENDOCERVIX, INFERIOR, LOOP ELECTROSURGICAL EXCISION PROCEDURE: - High-grade squamous intraepithelial lesion (ZAHRAA 2). - Margins (ectocervix and endocervix) positive for high-grade dysplasia. B. ENDOCERVIX, SUPERIOR, LOOP ELECTROSURGICAL EXCISION PROCEDURE: - Transformation zone mucosa; negative for dysplasia. 09/03/2022 15:18 [facility] Diagnosis Comment Immunoperoxidase stains were performed on this case to further characterize the lesion. ANTIBODY(CLONE)(BL OCK):RESULT P16 (E6H4TM, [place]) (A2): Positive, block-like expression Ki67 (MIB-1) (K2, Leica) (A2): Elevated proliferative index. NOTE: One or more of the reagents [...] performance characteristics have been determined by [facility] and/or by the referring laboratory. The [...] to perform high complexity clinical laboratory testing. 09/03/2022 15:18 [facility] Attestation There was significant resident/fellow involvement in the diagnostic evaluation of this case. By the signature below, the attending physician certifies that they have personally conducted a gross and/or microscopic examination of the described specimens and rendered or confirmed the above diagnosis. 09/03/2022 15:18 [facility] at 1518 Clinical History ZAHRAA II 09/03/2022 15:18 EDT [facility] Gross Description A. Received in formalin labelled with proper patient identification (initials R, S) and inferior cervix Bx are two soft glistening pink castro cervical tissues without obvious orientation measuring 0.6 x 0.5 x 0.2 cm and 0.8 x 0.6 x 0.3 cm. The margins are inked. The smaller tissue is bisected and entirely submitted in A1. The larger tissue is trisected and entirely submitted in A2. B. Received in formalin labelled with proper patient identification (initials R, S) and superior cervical Bx is a 1.4 x 0.8 cm cervical tissue excised to a depth of up to 0.6 cm. A small amount of dusky smooth castro ectocervix is present. Gross lesions are not identified. The endocervical margin is inked black. The cervical stromal margin is inked blue. The specimen is serially sectioned from 9-3 o'clock and entirely submitted as consecutive sections in B1-B4. MANNY STEELE(ASCP) 08/30/2022 9:50 09/03/2022 15:18 EDT [facility] Resident/Tobin w: Will Cornejo MD 09/03/2022 15:18 EDT [facility] Performing Lab [facility] 15:18 EDT [facility] Scanned Images 09/03/2022 15:18 EDT [facility] Tissue ENTIRE WALL OF CERVIX / Unknown 08/29/2022 14:15 EDT 08/30/2022 8:24 EDT Tissue specimen (specimen) CERVIX UTERI STRUCTURE / Unknown 08/29/2022 14:15 EDT 08/30/2022 8:25 EDT [facility] PATHOLOGY ORDERABLES Final Resul t [facility] [address] [place] [address] documented in this encounter Visit Diagnoses Diagnosis Encounter for other general examination documented in this encounter Care Teams Cream Buyer Relationship Specialty Start Date End Date Unknown, Provider, PCP - General 07/31/18 documented as of this encounter
--- OUTSIDE RECORDS SUMMARY | 2024-05-27 00:37 | XMS_ITS | Encounter Summary ---
[place] [address] Care Team Providers Care Stone Trimmer Name Role Phone Erinn Walters APRN Primary Care Provider [phone] Encounter Details Date Type Department Care Team ([facility] st Contact Info) Description 01/17/2012 1:00 PM EDT Office Visit [facility] [address] [place] [phone] Sanchez Barrios MD Social History Tobacco Use [...] on filedocumented in this encounter Care Teams Stone Trimmer Relationship Specialty Start Date End Date Erinn Walters APRN [address] [place] [address] PCP - General 04/03/11 04/29/24 documented as of this encounter
--- OUTSIDE RECORDS SUMMARY | 2024-05-27 00:37 | XMS_ITS | Encounter Summary ---
[place] [address] Care Team Providers Care Manager Agricultural Name Role Phone Erinn Walters DATA INTEGRATION ARCHITECT Primary Care Provider Encounter Details Date Type Department Care Team ([facility] st Contact Info) Description 07/30/2011 4:10 PM EDT Office Visit [facility] [address] [place] [address] Erinn Walters, DATA INTEGRATION ARCHITECT [address] [place] [address] Social History Tobacco Use Types Packs/Day Years Used Date Smoking Tobacco: Never Assessed Sex and Gender Information Value Date Recorded Sex Assigned at Not on file Gender Identity Not on file Sexual Orientation Not on file documented as of this encounter Plan of Treatment Not on file documented as of this encounter Visit Diagnoses Not on filedocumented in this encounter Care Teams Manager Agricultural Relationship Specialty Start Date End Date Erinn Walters APRN [address] [place] [address] PCP - General 04/03/11 04/29/24 documented as of this encounter
--- OUTSIDE RECORDS SUMMARY | 2024-05-27 00:37 | XMS_ITS | Encounter Summary ---
[place] [address] Care Team Providers Care Naphtha Washing System Operator Name Role Phone Erinn Walters APRN Primary Care Provider Encounter Details Date Type Department Care Team ([facility] st Contact Info) Description 02/22/2013 2:00 PM EST Office Visit [facility] [address] [place] [address] Hemant Red MD [address] [place] [address] Social History Tobacco Use Types Packs/Day Years Used Date Smoking Tobacco: Never Assessed Sex and Gender Information Value Date Recorded Sex Assigned at Not on file Gender Identity Not on file Sexual Orientation Not on file documented as of this encounter Plan of Treatment Not on file documented as of this encounter Visit Diagnoses Not on filedocumented in this encounter Care Teams Naphtha Washing System Operator Relationship Specialty Start Date End Date Erinn Walters APRN [address] [place] [address] PCP - General 04/03/11 04/29/24 documented as of this encounter
--- OUTSIDE RECORDS SUMMARY | 2024-05-27 00:37 | XMS_ITS | Encounter Summary ---
Author Organization [facility] Address [address] [place] [address] Care Team Providers Care Supply Chain Coordinator Name Role Phone Unknown, Provider Primary Care Provider Unava ilable Encounter Details Date Type Department Care Team (Late st Contact Info) Description 04/15/2019 Lab Requisition [facility] Pathology & Laboratory Medicine - [facility] [address] [place] [address] [address] [place] [address] Encounter for other general examination Social History [...] Date/Time Associated Diagnosis Comments SURGICAL PATHOLOGY Today 04/12/2019 6: 30 EST Encounter for other general examination documented in this encounter Results * SURGICAL PATHOLOGY (04/12/2019 6:30 EST) Final Diagnosis A. PLACENTA, DELIVERY UNSPECIFIED: Jimenez placenta, 404 grams: - Placental disk: - Acute chorionic plate vasculitis and numerous meconium laden macrophages. - Numerous acute stem vessel thrombi. - Villous maturation consistent with term placenta. 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 - membranes: - Acute chorionitis (ADIA stage 1, grade 2). - Numerous meconium laden macrophages associated with edema and reactive amniocytes. - Patchy laminar decidual necrosis. - 3 vessel umbilical cord: - Acute phlebitis with funisitis (FIR stage 1, grade 2). See comments. 04/27/2019 14:24 [facility] at 1424 Diagnosis Comment The umbilical cord is 38 cm in length. A short umbilical cord is defined as <35 cm. There is a small amount of hemorrhage around the umbilical vein in the Lebec's jelly. This finding is often seen in controlled cord traction during delivery of the placenta. Definite evidence of cord avulsion or abruption are not identified. An iron stain performed on the cord and membranes is negative for chronic hemorrhage. The stem vessel thrombi occasionally occlude the vessel lumens. These are considered high grade lesions of vascular malperfusion. Given the early organization of the thrombi, and the lack of villous stromal fibrosis or karyorrhexis, these thrombi likely represent an acute event. The gestational age is not provided, so appropriateness of placental weight and villous maturation cannot be commented on; however, coupled with the meconium deposition, a later term placenta is favored (37-41 weeks gestation). If the gestational age is less, findings would be suggestive of accelerated villous maturation, which could result from chronic and or maternal vascular malperfusion in the appropriate clinical context. 04/27/2019 14:24 [facility] Clinical History Placenta, membranes, evulsed cord (short) with false knots, no need for genetics 04/27/2019 14:24 [facility] Attestation There was significant resident/fellow involvement in the diagnostic evaluation of this case. By the signature below, the attending physician certifies that they have personally conducted a gross and/or microscopic examination of the described specimens and rendered or confirmed the above diagnosis. 04/27/2019 14:24 [facility] at 1424 Gross Description A. Received in formalin labelled with proper patient identification (initials R, S) and placenta is an intact jimenez placenta. There is a 38 cm in length and 0.9 cm in diameter detached, 3 vessel stephens-white umbilical cord. It demonstrates paracentral insertion 4.5 cm from the nearest disc margin. There are 4 coils per 10 cm. Two false knots are present. The membranes are yellow brown translucent with marginate insertion. The point of rupture lies 6.5 cm from the nearest disc margin. The disk is 404 gm, (trimmed, formalin fixed), 15.5 x 14.5 x 3.0 and cup-shaped. The surface is yellow-brown transparent with a dispersed vascular pattern. There are no lesions present on the surface. The maternal surface is stephens-castro with intact basal plate. There is minimal adherent blood clot. There is no indentation. The cut surface of the placental parenchyma is stephens-castro. There are no discrete lesions present. Hydraulic Rubbish Compactor Mechanic sections are submitted as follows: BLOCK DAWKINS A1- membrane roll and cross-section of end of cord A2- cross-section of cord 5 cm from insertion site A3- full thickness section of placental disc adjacent to umbilical cord insertion site A4-A6- three full thickness sections of central 2/3 of placental disc Artemio Billings MD 04/15/2019 15:59 04/27/2019 14:24 EST [facility] Resident/Tobin w: Artemio Billings MD 04/27/2019 14:24 EST [facility] Scanned Images 04/27/2019 14:24 EST [facility] Tissue PLACENTAL STRUCTURE / Unknown 04/12/2019 6:30 EST 04/15/2019 11:22 EST Bridgett Carlin [facility] PATHOLOGY ORDERABLES Final Re sult [facility] [address] [place] [address] documented in this encounter Visit Diagnoses Diagnosis Encounter for other general examination documented in this encounter Care Teams Supply Chain Coordinator Relationship Specialty Start Date End Date Unknown, Provider, PCP - General 07/31/18 documented as of this encounter
--- NOTE | 2024-05-27 07:15 | DI.US_ITS ---
Exam(s) US PELVIS TRANSVAGINAL EXAM: US PELVIS TRANSVAGINAL CLINICAL HISTORY: enlarged uterus,h/o abnl pap smear,n85.2,z87.898 TECHNIQUE: Transabdominal and transvaginal imaging was performed using standard protocol. COMPARISON: US US OB 2-3 trimester from 11/19/2018 FINDINGS: UTERUS: Anteverted. 0.7 x 4.3 x 5.2 cm Endometrium: [address], in appropriate position. Myometrium: Unremarkable. Cervix: Unremarkable. OVARIES: Right: Cyst or mass: None. Left: Large complex mass located to the left and superior to the uterus, likely originating from the left ovary. The left ovary is not identified separate from the mass. The mass is mostly cystic aguilar katharine contains multiple solid components with vascularity. It measures roughly 16.4 x 10 x 17.4 cm and is suspicious for malignancy. CUL-DE-SAC: Free fluid: None. IMPRESSION: 1. Normal-appearing uterus with endometrial stripe within normal limits. IUD in place. 2. 17 cm complex cystic left mass likely originating from the left ovary. DATA REPOSITORY:
== END 2024-05-27 00:42 ==
LOC: DI 00:22
PROVIDERS: PCP Obstetrics & Gynecology; Visit Provider Obstetrics & Gynecology
DX: N85.2 Hypertrophy of uterus (principal); Z87.898 Personal history of other specified conditions
CPT/HCPCS: 76830; 76856

== ENCOUNTER 2024-05-27 14:18 | Outpatient (CLI) | payer MEDICAID, SELFPAY ==
[2024-05-27 22:15] LABS: CEA 31.6 ng/mL (See Note)
[2024-05-27 22:50] LABS: CA 125 49 U/mL (<30)
[2024-05-28 10:11] LABS: CA 19-9 11 U/mL (<35)
== END 2024-05-27 14:19 | disposition home or self-care (01) ==
LOC: LBO 14:20
PROVIDERS: PCP Obstetrics & Gynecology; Visit Provider Obstetrics & Gynecology
DX: N83.8 Other noninflammatory disorders of ovary, fallopian tube and broad ligament (principal)
CPT/HCPCS: 36415; 86304; 82378; 86301

== ENCOUNTER 2024-12-07 01:39 | Outpatient (CLI) | payer MEDICAID, SELFPAY ==
--- NOTE | 2024-12-07 13:06 | DI.MAMMO_ITS ---
Exam(s) MAMMO SCREENING EXAM: MAMMO SCREENING CLINICAL HISTORY: screening TECHNIQUE: Mammograms were interpreted according to the usual protocol including computer analysis with CAD system, tomosynthesis and C-view imaging. COMPARISON: [address] [facility] FINDINGS: The breasts are composed of heterogeneously dense fibroglandular densities, Breast Density category C. No suspicious masses or suspicious microcalcifications are seen. No skin thickening or abnormal axillary lymph nodes are seen. There has been no significant change from prior exams. IMPRESSION: BI-RADS Category 1, Negative mammogram. Yearly screening mammography is recommended. Breast Density: Category C - The breasts are heterogeneously dense, which may obscure small masses. Breast density Category C or D implies that the patient has dense breast tissue. Dense breast tissue can make it harder to find cancer on a mammogram. Dense breast tissue is also associated with an increased risk of breast cancer. This information about the result of the mammogram report was provided to the patient to raise their awareness. Use this report when you speak with the patient about their risks for breast cancer, which includes their family history. At that time, you may recommend additional screening tests (Ultrasound or MRI) as these tests may add significant information. A negative radiographic report should not delay biopsy if a dominant or clinically suspicious mass is present. Up to ten percent of cancers are not identified on mammography. A negative report may reinforce clinical impression. Adenosis and dense breasts may obscure an underlying neoplasm. False positive reports average 6 to 10%.
== END 2024-12-07 01:59 ==
LOC: DI 01:39
PROVIDERS: PCP Obstetrics & Gynecology; Visit Provider Obstetrics & Gynecology
DX: Z12.31 Encounter for screening mammogram for malignant neoplasm of breast (principal); R92.333 Mammographic heterogeneous density, bilateral breasts
CPT/HCPCS: 77063; 77067

== ENCOUNTER → 2025-04-20 12:23 | Outpatient (CLI) | payer MEDICAID, SELFPAY ==
--- NOTE | 2025-04-20 07:43 | DI.CT_ITS ---
Exam(s) CT ABDOMEN PELVIS W EXAM: CT ABDOMEN PELVIS W CLINICAL HISTORY: Evaluate abdomin and pelvis for recurrence, Z90.710 Z90.722, Z79.79 R10.9. TECHNIQUE: Imaging Protocol: Axial computed tomography images with coronal and sagittal reformatted images were created and reviewed CONTRAST MATERIAL: Intravenous: Omnipaque 350 Contrast volume:100 ml Oral: yes no COMPARISON: US US PELVIS TRANSVAGINAL from 05/27/2024 FINDINGS: ABDOMEN and PELVIS: Lung Bases: No acute findings. Liver: Normal density. No suspicious mass. Gallbladder and biliary tract: No radiodense calculus. No wall thickening or pericholecystic fluid. No biliary dilation. Pancreas: Normal density. No abnormal calcifications or inflammatory process. No evidence of mass. Spleen: Normal. Kidneys: Normal size, contour and axis. No radiodense stones. No obstructive uropathy. No suspicious masses seen. Adrenal glands: No masses seen. Vasculature: Abdominal aorta non-dilated. Soft tissues: Unremarkable. Bladder: No gross wall thickening. No calculi.No focal mass. Bowel: No obstruction. No bowel wall thickening. Appendix normal. Increased quantity of stool noted in the ascending through mid descending colon. Peritoneal cavity: No ascites. No focal collection. No mesenteric inflammatory response. No free air. Bones: Unremarkable for age. No lytic or blastic lesions are identified. Reproductive organs: Pessary in place. Status post hysterectomy and bilateral salpingo-oophorectomy. Lymph nodes: There is a conglomeration of abnormal necrotic appearing lymph nodes in the left para-aortic region beginning below the level of the left renal vein extending down to the level of the aortic bifurcation. Approximate measurements are 7.5 cm in length by 3 cm and in AP and transverse dimensions. There are surgical clips seen adjacent to the left iliac artery and vein. No adenopathy is noted in this location. There are some small, nonspecific lymph nodes in the right lower quadrant mesentery. Abnormal 1.5 centimeter lymph node noted to the right of the spine at the L5-S1 level. IMPRESSION:: Status post hysterectomy and bilateral oophorectomy. Abnormal conglomeration of necrotic appearing lymph nodes are noted to the left of the aorta measuring 7.5 cm in length. Additional abnormal lymph node to the right of the spine at the L5-S1 level. No other additional sites of metastases are identified. RADIATION DOSE DELIVERED: 569.54mGy.cm Total DLP DATA REPOSITORY: All CT scans at this facility are submitted to the National Radiology Data Registry (NRDR) Dose Index Registry (DIR) with the [employer] (ACR). RADIATION OPTIMIZATION: All CT scans at this facility use at least one of these dose optimization techniques: automated exposure control; mA and/or kV adjustment per patient size (includes targeted exams where dose is matched to clinical indication); or iterative reconstruction.
[2025-04-20] MEDS: Normal Saline Flush 10 ML SYR IVP (14:49)
[2025-04-20] MEDS: Barium Sulfate 2% W/V-Berry Smoothie 450 ML BTL PO (14:49)
[2025-04-20] MEDS: Barium Sulfate 2% W/V-Creamy Vanilla Smoothie 450 ML BTL PO (14:49)
[2025-04-20] MEDS: Normal Saline - Diluent 50 ML VIAL IJ (14:49)
[2025-04-20] MEDS: Omnipaque 350 MG/ML 100 ML BTL IJ (14:50)
[2025-04-20 22:28] LABS: CEA 0.7 ng/mL (See Note)
[2025-04-20 23:26] LABS: CA 125 13 U/mL (<30)
== END ==
LOC: DI 12:23
PROVIDERS: Obstetrics & Gynecology; PCP Physician Assistant; Visit Provider Obstetrics & Gynecology
DX: Z90.710 Acquired absence of both cervix and uterus (principal); Z90.722 Acquired absence of ovaries, bilateral; Z90.79 Acquired absence of other genital organ(s); C56.9 Malignant neoplasm of unspecified ovary; R10.9 Unspecified abdominal pain; C56.2 Malignant neoplasm of left ovary
CPT/HCPCS: 86304; 74177; 82378; 82565; J3490